=== PATIENT | female | born 1940 | race Caucasian/White ===

== ENCOUNTER 2016-04-06 16:50 | Emergency (ER) | payer MEDICARE, OTHER ==
[~2016-04-06] VITALS: Ht 165.1 cm; Wt 78.2 kg
[~2016-04-06 16:50] MED LIST: B-CA1TAB PO; BIOT10004 PO; CHOL200025 PO; DOXY40CP4 PO; ESCI20TA PO; FLEC150T PO; LEVO100T97 PO; LOVA20TA PO; MELO15TA14 PO; METO25TA6 PO; METR45CR TOP; OMEG300C3 PO; OXYB5TAB10 PO; POT25TAB5 PO; SPRN50T PO; VIT1TABL83 PO; WARF2TAB7 PO; WARF6TAB6 PO
[2016-04-06 16:54] VITALS: BP 134/80; PULSE 72; RESP 18; O2SAT 97
[2016-04-06] MEDS ORDERED: oxyCODONE 1 mg/mL 5 mL Liquid PO ONE (17:05)
--- NOTE | 2016-04-06 17:07 | ED.REPORT ---
HPI-Trauma Minor / Fall Date of Service Apr 06, 2016 ED Provider: Chika Perez MD 76 year old female with a hx of esophageal cancer s/p partial esophagectomy,HTN and Afib on warfarin who presents to the ED after a GLF just [employer]. Pt was walking her dog when she tripped on the leash and fell to the ground. She reports she fell on her R knee, hands and face. She has a few abrasions that are bleeding and reports a chipped tooth. Pt was able to walk after the fall. Pt denies LOC. Nursing Notes Stated Complaint: GLF,FACIAL LAC,ON COUMADIN Chief Complaint: Multiple Trauma/Fall Nursing Notes Reviewed: Yes Allergies: Coded Allergies: acetaminophen (Verified Allergy, Mild, diarrhea, 01/12/16) hydrocodone bitartrate (Verified Allergy, Mild, diarrhea, 01/12/16) Scheduled B-Carotene/C/E/Lut/Mn Cmb 29 (Macuvite with Lutein Tablet) 1 Each Tablet 1 EACH PO DAILY Cholecalciferol (Vitamin D3) (Vitamin D3) 2,000 Unit Tablet 2,000 UNIT PO DAILY Doxycycline Monohyd (Doxycycline Monohyd) 40 Mg Capsule 40 MG PO DAILY Escitalopram Oxalate (Lexapro) 20 Mg Tablet 20 MG PO BID Flecainide Acetate (Flecainide Acetate) 150 Mg Tablet 150 MG PO BID Levothyroxine (Synthroid) 100 Mcg Tablet 100 MCG PO DAILY Lovastatin (Lovastatin) 20 Mg Tablet 40 MG PO HS Meloxicam (Mobic) 15 Mg Tablet 15 MG PO DAILY Metoprolol Tartrate (Metoprolol Tartrate) 25 Mg Tablet 25 MG PO BID Metronidazole (Metronidazole Cream) 45 Gm Cream..g. 1 APPLIC TOP BID [place]-3 Fatty Acids (Fish Oil) 300 Mg Capsule 600 MG PO DAILY Oxybutynin Chloride (Oxybutynin Chloride) 5 Mg Tablet 5 MG PO BID Pot Chloride/Pot Bicarb/Cit AC Effer (Potassium Chloride Effer Tablet) 25 Meq Tablet.eff 10 MEQ PO DAILY TAKE WITH FOOD Spironolactone (Aldactone) 50 Mg Tab 50 MG PO DAILY Vit B Comp/C/FA/Iron/Vit E (Vitamin B Complex Tablet) 1 Each Tablet 1 EACH PO DAILY Warfarin Sodium (Warfarin Sodium) 2 Mg Tablet 4 MG PO [place] Warfarin Sodium (Warfarin Sodium) 6 Mg Tablet 6 MG PO mo,fr Miscellaneous Medications Biotin (Biotin) 1,000 Mcg Tab.chew 2,500 MCG PO General Time Seen by MD: 17:04 Chief Complaint Fall, Face injury, Extremity pain Hx Obtained From: Patient Arrived By: Walk-in Onset Occurred: Just prior to arrival Symptom Duration: Since onset Caused by: Fall on ground Location: Face Hand left Hand right Knee right Quality: Painful Severity: Current: Mild Associated with: Denies: Loss of consciousness, Neck pain Pertinent Negative: Relieved by nothing Past Medical History Past Medical History Esophageal cancer Tachy-luana syndrome Reports: Congestive heart failure, GERD, Hypertension Reports: Atrial fibrillation, Thyroid disease Past Surgical History Esophagectomy Colon resection Reports: Pacemaker insertion Smoking History Former Smoker Social History Other Social History: Ambulatory Status Independent Review of Systems Basic Review of Systems Psychiatric: Normal thought content Constitutional: Denies: Fever Respiratory: Denies: Shortness of breath Musculoskeletal: Reports: Extremity pain Neurologic: Denies: Change LOC Complete sys rev & neg: except as marked. Physical Exam Initial Vital Signs Vital Signs (First) Date Time Temp Pulse Resp B/P Pulse Ox O2 Delivery O2 Flow Rate FiO2 04/06/16 16:54 37 72 18 134/80 97 Room Air Initial VS: Reviewed General/Constitutional: Awake, Alert Quite upset Neck: Supple, No midline vertebral tend Head / Eyes: Normocephalic, PERRL Abrasion to R upper eyebrow. Small cut to inner aspect of R upper lip. Abrasion R lower lip. Abrasion to R cheek. ENT: Mucous membranes moist Chip to tooth #26 Respiratory / Chest: Breath sounds NL, Breath sounds = bilat, No respiratory distress, No rales, No rhonchi, No wheezing Cardiovascular: Heart rate NL, Regular rhythm, Heart sounds NL, Cap refill not delayed, Peripheral circulation NL Abdomen: Soft, Non-tender Back: Inspection NL, No midline vertebral tend Upper Extremity / MS: Full range of motion, Neurologic intact, Vascular intact Minor abrasions to bilat palms Lower Extremity / Pelvis / MS: Full range of motion, Neurologic intact, Vascular intact Minor abrasions to right knee Skin: Warm, Dry Neurologic: Oriented X3, Speech NL, No motor deficits, Gait NL (Walks without difficulty ) Interpretation & Diagnostics CT Head Interpretation IMPRESSION: No acute intracranial abnormality is found. Dictated by: Dudley Nichols M.D. on 04/06/2016 at 17:36 Study: Head CT no contrast Interpretation / Wet Read by: Interpret - Radiologist Re-Eval/Medical Decision Re-Evaluation/Progress : Time of Eval: 17:44 Re-Evaluation/Progress Note: Pt updated of imaging. All questions addressed. Counseled Regarding: Diagnosis, Need for follow-up, When/why to return to ED Discharge & Departure Impression: Primary Impression: Fall Encounter type: initial encounter Qualified Code: W19.XXXA - Unspecified fall, initial encounter Additional Impression: Abrasions of multiple sites Ruled Out: Intracranial hemorrhage Disposition: Home Discharge Condition All VS Reviewed: Yes Condition: Improved Additional Instructions: I am so glad you didn't do anything significant! There is no bleeding inside your head. You will have some more bruising and be more sore tomorrow. You can take Tylenol extra strength and the oxycodone you have at home for pain. Be careful with the dog. Good luck with the upcoming chemo and radiation. Referrals: Rosa Devlin MD (PCP) Scribe Attestation Portions of this note were transcribed by Noreen Kohli. I, (Chika Perez MD ) personally performed the history, physical exam and medical decision-making; I reviewed and confirmed the accuracy of the information in the transcribed note. Signed by: Noreen Kohli. 04/06/2016, 1817 copies to: Rosa Devlin MD, Shawna L MD Apr 06, 2016 17:07 Noreen Kohli Apr 06, 2016 17:44
--- NOTE | 2016-04-06 17:38 | DRSVH ---
PROCEDURE: CT BRAIN WITHOUT CONTRAST ([id number]) INDICATIONS: fell, on coumadin TECHNIQUE: Noncontrast 4.5 mm thick angled axial sections acquired from the foramen magnum to the vertex, with c oronal reformats. COMPARISON: [facility], CT, BRAIN W/O CONTRAST, 03/21/2008, 10:43. FINDINGS: Image quality: Excellent. CSF spaces: Basal cisterns are patent. No extra-axial fluid collections. The ventricles are symmet laly in size and shape. Brain: No intracranial bleeds or masses. There is cerebral volume loss for age, with resultant vent ricular and sulcal prominence. There are periventricular and deep white matter chronic small vessel ischemic changes. There is intracranial internal carotid artery atherosclerosis. Skull and face: Calvarium and visualized facial bones appear intact, without suspicious lesions. Sinuses: Visualized sinuses and mastoids are clear. IMPRESSION: No acute intracranial abnormality is found. Dictated by: Dudley Nichols M.D. on 04/06/2016 at 17:36 Approved by: Dudley Nichols M.D. on 04/06/2016 at 17:36
[2016-05-01] MEDS ORDERED: CAPE500T PO (09:40)
[2016-06-14] MEDS ORDERED: METO25TA6 PO (09:11)
[2016-06-14] MEDS ORDERED: FLEC100T2 PO (09:11)
[2016-06-28] MEDS ORDERED: PANT20TA2 PO (09:18)
== END 2016-04-06 18:14 | disposition home or self-care (01) ==
LOC: SED 16:50
DX: S00.211A Abrasion of right eyelid and periocular area, initial encounter (principal); S00.511A Abrasion of lip, initial encounter; S00.81XA Abrasion of other part of head, initial encounter; S60.511A Abrasion of right hand, initial encounter; S60.512A Abrasion of left hand, initial encounter; S80.211A Abrasion, right knee, initial encounter; S02.5XXA Fracture of tooth (traumatic), initial encounter for closed fracture; W01.0XXA Fall on same level from slipping, tripping and stumbling without subsequent striking against object, initial encounter; Y92.9 Unspecified place or not applicable; Y93.K1 Activity, walking an animal; Y99.8 Other external cause status; I50.9 Heart failure, unspecified; K21.9 Gastro-esophageal reflux disease without esophagitis; I10 Essential (primary) hypertension; I48.91 Unspecified atrial fibrillation; E07.9 Disorder of thyroid, unspecified; Z85.01 Personal history of malignant neoplasm of esophagus; Z95.0 Presence of cardiac pacemaker; Z90.89 Acquired absence of other organs; Z87.891 Personal history of nicotine dependence; Z79.01 Long term (current) use of anticoagulants; Z88.6 Allergy status to analgesic agent; Z88.5 Allergy status to narcotic agent

== ENCOUNTER 2016-05-30 10:39 | Inpatient (IN) | payer MEDICARE, OTHER ==
[2016-05-30] VITALS (8 sets, daily range): BP systolic 74–118; BP diastolic 31–67; PULSE 105–138; RESP 16–22; O2SAT 94–97
[~2016-05-30] VITALS: Ht 153.7 cm; Wt 90.2 kg
[~2016-05-30 10:39] MED LIST changes: +CAPE500T PO
[2016-05-30] MEDS ORDERED: Ondansetron 2 mg/mL 2 mL Inj IVPUSH ONE (10:55)
[2016-05-30] MEDS ORDERED: 0.9% Sodium Chloride 1,000 ML IV SCH (11:20)
--- NOTE | 2016-05-30 11:30 | DRSVH ---
PROCEDURE: X-RAY CHEST ONE VIEW, PORTABLE ([id number]) INDICATIONS: SHORTNESS OF BREATH TECHNIQUE: One view of the chest was acquired. COMPARISON: [facility], CR, XR CHEST 1VW (PORTABLE), 08/17/2015, 15:41. FINDINGS: Surgical changes and devices: Dual-lead cardiac pacer is stable. Lungs and pleura: No pleural effusions or pneumothorax. Lungs are clear. Mediastinum: Mediastinal contours appear normal. Heart size is normal. Bones and chest wall: No suspicious bony lesions. Overlying soft tissues appear unremarkable. IMPRESSION: No acute cardiopulmonary disease process. Dictated by: Mikala Richey MD, PhD on 05/30/2016 at 11:27 Approved by: Mikala Richey MD, PhD on 05/30/2016 at 11:28
[2016-05-30] MEDS ORDERED: MetoCLOpramide 5 mg/mL 2 mL Inj IVPUSH ONE (11:35)
[2016-05-30] MEDS ORDERED: HYDROmorphone 0.5 mg/0.5 mL iSecure Syringe IVPUSH PRN (11:35)
[2016-05-30] MEDS ORDERED: Pantoprazole 4 mg/mL 10 mL Inj IVPUSH ONE (11:35)
--- NOTE | 2016-05-30 11:35 | ED.REPORT ---
HPI-Abd Pain F 40 and Over Date of Service May 30, 2016 ED Provider: Jermaine Morgan MD History of Present Illness: Patient is a 76 y.o. F with past medical history of esophageal cancer currently being treated with oral chemotherapy and radiation, tachybrady syndrome, Atrial fibrilation no longer on coumadin, HFpEF EF 60-65%. She presents to the ED with two day history of worsening abdominal pain secondary to chemo-radiation therapy described as pressure-cramps Associated with nausea, vomiting, diarrhea x 17 in past 24 hours, back pain. Made worse with PO intake, made better by nothing. Patient seen at started on 1 L NS, sent over to ED for further treatment and work up. Patient taken immodium with minimal relief, zofran, Currently off of coumadin, aldactone per cardiology, discontinued one week ago. Oncologist Dr. Cruz Nursing Notes Stated Complaint: WEAKNESS Chief Complaint: Female Abdominal Pain Nursing Notes Reviewed: Yes Allergies: Coded Allergies: acetaminophen (Verified Allergy, Mild, diarrhea, 05/30/16) hydrocodone bitartrate (Verified Allergy, Mild, diarrhea, 05/30/16) Scheduled Aspirin (Aspirin) 325 Mg Tablet 325 MG PO DAILY Capecitabine (Xeloda) 500 Mg Tablet 1,650 MG PO BID takes 1650mg BID x5 weeks during RAD ONC Doxycycline Monohyd (Doxycycline Monohyd) 40 Mg Capsule 40 MG PO DAILY Escitalopram Oxalate (Lexapro) 20 Mg Tablet 20 MG PO BID Flecainide Acetate (Flecainide Acetate) 150 Mg Tablet 150 MG PO BID Levothyroxine (Synthroid) 100 Mcg Tablet 100 MCG PO DAILY Lovastatin (Lovastatin) 20 Mg Tablet 40 MG PO HS Metoprolol Tartrate (Metoprolol Tartrate) 25 Mg Tablet 25 MG PO BID Metronidazole (Metronidazole Cream) 45 Gm Cream..g. 1 APPLIC TOP BID Oxybutynin Chloride (Oxybutynin Chloride) 5 Mg Tablet 5 MG PO BID Pantoprazole DR (Pantoprazole DR) 40 Mg Tablet.dr 40 MG PO BID Potassium Chloride ER (Potassium Chloride ER) 20 Meq Tablet.er 20 MEQ PO DAILY Scheduled PRN Ondansetron ODT (Ondansetron ODT) 4 Mg Tab.rapdis 4 MG PO BID PRN PRN For Nausea General Time Seen by MD: 11:15 Chief Complaint Abdominal pain, Nausea, Vomiting mild Sudden in Onset?: No Onset Occurred: 1 day ago Past Medical History Past Medical History Esophageal cancer Tachy-luana syndrome Reports: Congestive heart failure, GERD, Hypertension Reports: Atrial fibrillation, Thyroid disease Past Surgical History Esophagectomy Colon resection Reports: Pacemaker insertion Smoking History Former Smoker Social History Other Social History: Ambulatory Status Independent Physical Exam Vital Signs Vital Signs (First) Date Time Temp Pulse Resp B/P Pulse Ox O2 Delivery O2 Flow Rate FiO2 05/30/16 10:45 37 138 19 98/53 97 Room Air 05/30/16 14:05 2 Initial VS: Reviewed Head / Eyes: Atraumatic, Normocephalic, PERRL ENT: Mucous membranes moist, Conjunctiva normal, No scleral icterus Lymphatic: No lymphadenopathy Extremities: Vascular intact, Neuro intact Skin: Warm, Dry, No cyanosis Neurologic: Alert, Oriented, Nonfocal Psychiatric: Mood/affect normal, Behavior normal, Normal thought content Respiratory / Chest: Breath sounds NL, Breath sounds = bilat, No respiratory distress, No rales, No rhonchi, No wheezing, No stridor Cardiovascular: Heart rate NL, No murmurs, Cap refill not delayed Heart Rate / Rhythm: Positive: Irreg irregular rhythm Abdomen: Soft, McBurney's non-tender, No rebound, No distention, No hernia, No palpable mass, No pulsatile mass Tenderness/Guarding/Rebound: Positive: Guarding involuntary, Guarding voluntary , Tender diffuse Bowel Sounds / Distention: Positive: Bowel sounds hypoactive Lower Extremity / Pelvis / MS: No swelling, Non-tender, No erythema, No edema Interpretation & Diagnostics Lab Results Interpretation Result Diagram: 06/02/16 0500 06/02/16 1640 Test 05/30/16 11:10 05/30/16 11:30 Hold Urine Received (Received) Myelocytes % 1% (0-0) X-Ray Chest Interpretation Chest Xray Interpretation: IMPRESSION: No acute cardiopulmonary disease process. Dictated by: Mikala Richey MD, PhD on 05/30/2016 at 11:27 Approved by: Mikala Richey MD, PhD on 05/30/2016 at 11:28 Interpretation / Wet Read by: Interpret - Radiologist X-Ray Abdominal Interpretation IMPRESSION: No acute disease process. Dictated by: Mikala Richey MD, PhD on 05/30/2016 at 11:58 Approved by: Mikala Richey MD, PhD on 05/30/2016 at 11:59 Interpretation / Wet Read by: Interpret - Radiologist Re-Eval/Medical Decision Med Decision/Clinical Course Patient is a 76 y.o. F who presented with abdominal pain, nausea, vomiting, diarrhea secondary to chemo and radiation therapy. Patient found to be dehydrate and hypotensive on presentation. Patient given 3L IV NS in the ED chest and abdominal x-ray did not show any signs of acute disease process. Lab results show significant hypomagnesemia, and hypokalemia, patient given IV replacement of potassium and magnesium. Given patient's significant fluid loss over the past 24 hours and comorbid conditions fluid resusitation under a controlled setting will be necessary over the next 24 hours. Oncology consulted and will see patient tonight or in the AM, no neuropenic precautions per Oncology at this time. Due to patient's risk factors for infection septic work up initiated in ED. Re-Evaluation/Progress #1: Time of Eval: 12:15 Patient Status: Mild relief Re-Evaluation/Progress Note: Patient has had 2 L NS, BP 98/50, alert and oriented, abdomen distillery supervisor to palpation diffusely, no BM since initial one at admission. CBC shows neutropenia, CMP Mg 1.1, 2 g IV repleation ordered. Re-Evaluation/Progress #2: Time of Eval: 13:12 Patient Status: Condition improved Re-Evaluation/Progress Note: Repleat potassium, repeat BMP ordered, alert and oriented, admit requested Re-Evaluation/Progress #3: Time of Eval: 13:45 Patient Status: Condition improved Re-Evaluation/Progress Note: BP 81/31 alert and oriented, denies abdominal pain and nausea, no vomitng or diarrhea since admission. Recieved Mg and potassium replacement Blood and urine cultures, Lactic acid ordered Admit req changed to PCC Consultation #1: Referral / Consult Name: Celestino Cruz MD Consulted With: On-call physician (Oncology) Requested Call at: 12:15 Doweler: Will see patient, Agrees with eval, Agrees with plan Note: Discussed patient presentation and status, agrees with admission for observation over night and fluid resusitation, will see patient tonight or in AM, available by pager. Consultation #2: Consulted With: Hospitalist Requested Call at: 15:04 Call Returned at: 15:04 Doweler: Will see patient, Accepts admit Counseled Regarding: Diagnosis, Lab results, Need for admission Discharge & Departure Primary Impression: Abdominal pain Abdominal location: generalized Qualified Code: R10.84 - Generalized abdominal pain Additional Impressions: Radiation gastritis Neutropenia Neutropenia type: secondary to cancer chemotherapy Qualified Code: D70.1 - Agranulocytosis secondary to cancer chemotherapy Diarrhea Nausea & vomiting Vomiting type: unspecified Vomiting Intractability: unspecified Qualified Code: R11.2 - Nausea with vomiting, unspecified Hypotension Hypotension type: other hypotension type Qualified Code: I95.89 - Other hypotension Discharge Condition All VS Reviewed: Yes Condition: Stable Referrals: Rosa Devlin MD (PCP) Attending Statement The patient was seen and examined together with Dr. Adair on 05/30/16 and I agree with the history, exam and plan as outlined in the note above. copies to: Rosa Devlin MD; Celestino Cruz MD, AARON J DO May 30, 2016 11:21 Jermaine Morgan MD Jun 03, 2016 09:02 Urine Granular Casts None seen (NONE SEEN) Urine Waxy Casts None seen (NONE SEEN) Urine Red Blood Cell Casts None seen (NONE SEEN) Urine White Blood Cell Casts None seen (NONE SEEN) Urine Mucus Present (None Seen) Urine Trichomonas None seen (NONE SEEN) Urine Yeast None (NONE SEEN) Urinalysis Comment None Urine Culture Reflexed Not indicated Hold Urine Received (Received) White Blood Count 2.2th/mm3 (3.8-10.1) Red Blood Count 4.67mil/mm3 (3.90-5.20) Hemoglobin 13.9g/dL (12.0-15.6) Hematocrit 40.5% (35.0-46.0) Mean Corpuscular Volume 86.7fL (81-100) Mean Corpuscular Hemoglobin 29.8pg (27.0-35.0) Mean Corpuscular Hemoglobin Concent 34.3% (32.0-37.0) Red Cell Distribution Width 17.4% (12.3-15.4) Platelet Count 187bil/L (150-400) Neutrophils (%) (Auto) 40% (40-74) Lymphocytes (%) (Auto) 7% (14-46) Monocytes (%) (Auto) 45% (4-12) Eosinophils (%) (Auto) 1% (0-5) Basophils (%) (Auto) 0% (0-3) Band Neutrophils % 6% (1-5) Myelocytes % 1% (0-0) Total Bilirubin 1.2mg/dL (0.0-1.2) Aspartate Amino Transf (AST/SGOT) 20U/L (0-50) Alanine Aminotransferase (ALT/SGPT) 9U/L (0-32) Alkaline Phosphatase 55U/L (25-165) Troponin T 0.010ug/L (0.0-0.011) Total Protein 6.2g/dL (6.4-8.4) Albumin 3.5g/dL (3.4-5.0) Lipase 5U/L (13-60) Sodium Level 132mEq/L (134-144) Potassium Level 3.4mEq/L (3.5-5.2) Chloride Level 98mEq/L (97-108) Carbon Dioxide Level 18mmol/L (18-29) Blood Urea Nitrogen 13mg/dL (8-27) Creatinine 0.87mg/dL (0.57-1.00) Estimat Glomerular Filtration Rate 90mL/min (>59) Glucose Level 110mg/dL (60-99) Calcium Level 7.1mg/dL (8.5-10.1) Magnesium Level 1.5mg/dL (1.6-2.6) X-Ray Chest Interpretation Chest Xray Interpretation: IMPRESSION: No acute cardiopulmonary disease process. Dictated by: Mikala Richey MD, PhD on 05/30/2016 at 11:27 Approved by: Mikala Richey MD, PhD on 05/30/2016 at 11:28 Interpretation / Wet Read by: Interpret - Radiologist X-Ray Abdominal Interpretation IMPRESSION: No acute disease process. Dictated by: Mikala Richey MD, PhD on 05/30/2016 at 11:58 Approved by: Mikala Richey MD, PhD on 05/30/2016 at 11:59 Interpretation / Wet Read by: Interpret - Radiologist Re-Eval/Medical Decision Med Decision/Clinical Course Patient is a 76 y.o. F who presented with abdominal pain, nausea, vomiting, diarrhea secondary to chemo and radiation therapy. Patient found to be dehydrate and hypotensive on presentation. Patient given 3L IV NS in the ED chest and abdominal x-ray did not show any signs of acute disease process. Lab results show significant hypomagnesemia, and hypokalemia, patient given IV replacement of potassium and magnesium. Given patient's significant fluid loss over the past 24 hours and comorbid conditions fluid resusitation under a controlled setting will be necessary over the next 24 hours. Oncology consulted and will see patient tonight or in the AM, no neuropenic precautions per Oncology at this time. Due to patient's risk factors for infection septic work up initiated in ED. Re-Evaluation/Progress #1: Time of Eval: 12:15 Patient Status: Mild relief Re-Evaluation/Progress Note: Patient has had 2 L NS, BP 98/50, alert and oriented, abdomen distillery supervisor to palpation diffusely, no BM since initial one at admission. CBC shows neutropenia, CMP Mg 1.1, 2 g IV repleation ordered. Re-Evaluation/Progress #2: Time of Eval: 13:12 Patient Status: Condition improved Re-Evaluation/Progress Note: Repleat potassium, repeat BMP ordered, alert and oriented, admit requested Re-Evaluation/Progress #3: Time of Eval: 13:45 Patient Status: Condition improved Re-Evaluation/Progress Note: BP 81/31 alert and oriented, denies abdominal pain and nausea, no vomitng or diarrhea since admission. Recieved Mg and potassium replacement Blood and urine cultures, Lactic acid ordered Admit req changed to PCC Consultation #1: Referral / Consult Name: Celestino Cruz MD Consulted With: On-call physician (Oncology) Requested Call at: 12:15 Doweler: Will see patient, Agrees with eval, Agrees with plan Note: Discussed patient presentation and status, agrees with admission for observation over night and fluid resusitation, will see patient tonight or in AM, available by pager. Consultation #2: Consulted With: Hospitalist Requested Call at: 15:04 Call Returned at: 15:04 Doweler: Will see patient, Accepts admit Counseled Regarding: Diagnosis, Lab results, Need for admission Discharge & Departure Primary Impression: Abdominal pain Abdominal location: generalized Qualified Code: R10.84 - Generalized abdominal pain Additional Impressions: Radiation gastritis Neutropenia Neutropenia type: secondary to cancer chemotherapy Qualified Code: D70.1 - Agranulocytosis secondary to cancer chemotherapy Diarrhea Nausea & vomiting Vomiting type: unspecified Vomiting Intractability: unspecified Qualified Code: R11.2 - Nausea with vomiting, unspecified Hypotension Hypotension type: other hypotension type Qualified Code: I95.89 - Other hypotension Discharge Condition All VS Reviewed: Yes Condition: Stable Referrals: Rosa Devlin MD (PCP) copies to: Rosa Devlin MD; Celestino Cruz MD, AARON J DO May 30, 2016 11:21
[2016-05-30 11:38] LABS: Mean Corpuscular Hemoglobin 29.8 pg (27.0-35.0); Mean Corpuscular Volume 86.7 fL (81-100); Platelet Count 187 bil/L (150-400)
[2016-05-30] MEDS ORDERED: 0.9% Sodium Chloride 1,000 ML IV ONE ×4 (11:50→22:55)
--- NOTE | 2016-05-30 12:01 | DRSVH ---
PROCEDURE: X-RAY ABDOMEN, ONE VIEW ([id number]) INDICATIONS: ABDOMINAL PAIN TECHNIQUE: One view of the abdomen acquired. COMPARISON: None. FINDINGS: Surgical changes and devices: Cholecystectomy clips. Multiple surgical clips and sutures project over the pelvis. Bowel: Bowel gas pattern is normal. Soft tissues: No suspicious abdominal calcifications. Visualized solid organ contours appear normal in size. Bones: No suspicious bony lesions. IMPRESSION: No acute disease process. Dictated by: Mikala Richey MD, PhD on 05/30/2016 at 11:58 Approved by: Mikala Richey MD, PhD on 05/30/2016 at 11:59
[2016-05-30 12:06] LABS: TROPONIN T 0.01 ug/L (0.0-0.011)
[2016-05-30 12:10] LABS: BASOPHILS % (AUTO) 0 % (0-3); EOSINOPHILS % (AUTO) 1 % (0-5); MONOCYTES % (AUTO) 45 % (4-12); NEUTROPHILS % (AUTO) 40 % (40-74)
[2016-05-30 12:27] LABS: Magnesium 1.1 mg/dL (1.6-2.6)
[2016-05-30] MEDS ORDERED: Magnesium Chloride SR 64 mg ER24 Tablet PO ONE ×2 (12:30→14:20)
[2016-05-30] MEDS ORDERED: Magnesium Sulf 2 Gm/50mL Water 2 GM in IV Premix 1 EACH IV ONE ×3 (12:45→20:10)
[2016-05-30 13:01] LABS: APPEARANCE,URINE HAZY (CLEAR,HAZY); COLOR,URINE YELLOW (YELLOW); OCCULT BLOOD,URINE NEGATIVE (NEGATIVE)
[2016-05-30 13:03] LABS: UROBILINOGEN,URINE NORMAL (NORMAL)
[2016-05-30] MEDS ORDERED: KCl 40 mEq/D5W 500 mL 40 MEQ in IV Premix 500 EACH IV ONE (13:10)
[2016-05-30] MEDS ORDERED: POTA-62 PO (13:50)
[2016-05-30] MEDS ORDERED: ASPI325T32 PO (13:50)
[2016-05-30] MEDS ORDERED: PANT40TA3 PO (13:52)
[2016-05-30] MEDS ORDERED: ONDA4TAB12 PO (13:52)
[2016-05-30] MEDS ORDERED: Potassium Chloride 20 mEq SR Tablet PO ONE (14:20)
[2016-05-30] MEDS ORDERED: Polyethylene Glycol (PEG) 17 Gm Powder PO PRN (15:05)
[2016-05-30] MEDS ORDERED: Alum-Mag Hydrox-Simeth 30 mL Suspension PO PRN (15:05)
--- NOTE | 2016-05-30 15:43 | NUR ---
ED to PCC Patient arrived from ED at approximately 1530 via gurney. Transferred pt to PCC bed. BP 100/60. RR 18, P110. T38.8. Pt visiting with son. Pt resting comfortably. Provided ice chips at this time. MP30 due to low BP in ED, NC 2L. Care continues.
[2016-05-30] MEDS: 0.9% Sodium Chloride 1,000 ML IV SCH (16:25)
--- NOTE | 2016-05-30 17:13 | NUR ---
BP Pt BP ranging from 79/32 to 89/31. Pt denies chest pain, states she is lightheaded, due to not keeping anything down per pt. NS running at 75 ml/hr, potassium at 75 ml/hr due to veins hurting per patient. MD notified and aware. Care continues.
--- NOTE | 2016-05-30 17:19 | PCM.HPMED ---
Subjective Date of Service May 30, 2016 Primary Provider: Admitting Physician: Nikita Garber MD Primary Care Physician: Rosa Devlin MD Attending Physician: Nikita Garber MD Admit Status: From the Emergency Department, 23-Hour Observation, Admit to [facility], [facility] Telemetry Chief Complaint: Weakness, dehydration and hypotension. History of Present Illness: This is a 76-year-old female with a history of esophageal cancer. This is diagnosed in November. She underwent a partial esophagectomy February 01 at [facility]. She is currently undergoing combination radiation and chemotherapy. She is in her third week of radiation, 5 weeks total planned. This is followed by chemotherapy. She presented today with generalized weakness as well as diarrhea and nausea with multiple episodes of emesis. He denies any blood per rectum. Minimal abdominal pain. Some cramping. Some rhinorrhea but no fevers or chills. She historically does get cold easily. In the ED she was found clinically to be Depleted, had a very low systolic blood pressure and was started with fluid resuscitation with normal saline. There is no evidence of infection based on laboratory testing or chest x-ray. She denies recent cough, dyspnea, hematuria or dysuria. Her diarrhea is felt to likely related to recent radiation therapy. Review of Systems: No headache, hearing loss or visual changes. Some rhinorrhea. No sore throat or cough. No hematuria or dysuria. No skin rash or lesions. She is generally weak. She gets lightheaded when standing up. She has had a hard time with her oral intake including fluids. She said really nothing D for several days. She recently had some bleeding in her nose which prompted her manager concrete to stop her Coumadin for chronic A. fib and is now on aspirin. All is reviewed and is otherwise negative except as noted in H&P Allergies Coded Allergies: acetaminophen (Verified Allergy, Mild, diarrhea, 05/30/16) hydrocodone bitartrate (Verified Allergy, Mild, diarrhea, 05/30/16) Home Medications Scheduled Aspirin (Aspirin) 325 Mg Tablet 325 MG PO DAILY Capecitabine (Xeloda) 500 Mg Tablet 1,650 MG PO BID takes 1650mg BID x5 weeks during RAD ONC Doxycycline Monohyd (Doxycycline Monohyd) 40 Mg Capsule 40 MG PO DAILY Escitalopram Oxalate (Lexapro) 20 Mg Tablet 20 MG PO BID Flecainide Acetate (Flecainide Acetate) 150 Mg Tablet 150 MG PO BID Levothyroxine (Synthroid) 100 Mcg Tablet 100 MCG PO DAILY Lovastatin (Lovastatin) 20 Mg Tablet 40 MG PO HS Metoprolol Tartrate (Metoprolol Tartrate) 25 Mg Tablet 25 MG PO BID Metronidazole (Metronidazole Cream) 45 Gm Cream..g. 1 APPLIC TOP BID Oxybutynin Chloride (Oxybutynin Chloride) 5 Mg Tablet 5 MG PO BID Pantoprazole DR (Pantoprazole DR) 40 Mg Tablet.dr 40 MG PO BID Potassium Chloride ER (Potassium Chloride ER) 20 Meq Tablet.er 20 MEQ PO DAILY Scheduled PRN Ondansetron ODT (Ondansetron ODT) 4 Mg Tab.rapdis 4 MG PO BID PRN PRN For Nausea PMH 1. Esophageal cancer 2. Tachycardia bradycardia syndrome 3. Atrial fibrillation 4. Chronic diastolic heart failure 5. GERD. 6. Essential hypertension. 7. Hypothyroidism Surgical History Esophagectomy Colectomy Social History Occupation: retired Hx Alcohol Use: Yes (SPECIAL OCCASIONS) Hx Substance Use: No Hx Tobacco Use: No (QUIT IN 70'S) Smoking Status: Former Smoker Living Arrangement: with Family Exam Vital Signs Vital Sign - Last Date Time Temp Pulse Resp B/P Pulse Ox O2 Delivery O2 Flow Rate FiO2 05/30/16 15:50 105 05/30/16 15:36 36.9 22 100/60 95 Nasal Cannula 05/30/16 14:05 2 Exam Alert and oriented 3, fluent speech. Normal affect. Normal scalp. If normal nose and ears Anicteric sclerae, symmetric pupils Oropharynx is very dry mucosa no facial droop Neck is supple, normal thyroid no adenopathy Lungs are clear with normal rate and effort. Heart is irregular without murmur gallop or rub. Abdomen soft nontender, no masses or rebound Exams are free of edema Good pedal and radial pulses. Skin is with dry or decreased turgor. Skin is free of rash, lesions or ecchymosis. Joints are not swollen or deformed Muscles with normal tone. Cranial nerves are intact. Lab and Diagnostics Result Diagram: 05/30/16 1130 05/30/16 1328 Assessment & Plan 1. Hypotension secondary to volume depletion, POA. Fluid resuscitation with normal saline. 2. Lactic acidosis, secondary to Lyme depletion. POA. Follow with fluid resuscitation 3. Mild hypokalemia, POA. Replete 4. Hypomagnesemia, POA. Replete 5. Esophageal cancer, status post esophagectomy currently on chemoradiation therapy. POA. 6. Chronic diastolic heart failure, POA. Currently compensated. Follow for symptoms that she is fluid resuscitated. 7. Essential hypertension, POA. Hold meds until fluid resuscitated. Patient is full resuscitation this was discussed with her and her son today. She is admitted observation status with a potential one night length of stay. Pain Evaluation: Adequate Pain Control VTE Mechanical Devices: Intermittant Pneumatic CD Resuscitation Status: CPR: Attempt Resuscitation Time spent 40 minutes Nikita Garber MD May 30, 2016 17:19
[2016-05-30] MEDS: Ondansetron 2 mg/mL 2 mL Inj IVPUSH PRN ×2 (17:26→20:12)
[2016-05-30] MEDS: HYDROmorphone 0.5 mg/0.5 mL iSecure Syringe IVPUSH PRN (20:11)
[2016-05-31 00:06] VITALS: BP 77/43; PULSE 105; RESP 20; O2SAT 96
[2016-05-31] MEDS: 0.9% Sodium Chloride 1,000 ML IV ONE ×2 (01:45→02:11)
[2016-05-31] MEDS: 0.9% Sodium Chloride 1,000 ML IV SCH ×4 (01:45→10:31)
[2016-05-31 02:28] VITALS: BP 76/45; PULSE 100; RESP 25; O2SAT 96
[2016-05-31] MEDS: Ondansetron 2 mg/mL 2 mL Inj IVPUSH PRN ×2 (03:16→11:55)
[2016-05-31 03:30] LABS: Mean Corpuscular Hemoglobin 29.4 pg (27.0-35.0); Mean Corpuscular Volume 89.1 fL (81-100); Platelet Count 110 bil/L (150-400)
[2016-05-31 03:49] LABS: Magnesium 2.2 mg/dL (1.6-2.6)
[2016-05-31 03:50] LABS: BASOPHILS % (AUTO) 0 % (0-3); EOSINOPHILS % (AUTO) 0 % (0-5); MONOCYTES % (AUTO) 38 % (4-12); NEUTROPHILS % (AUTO) 26 % (40-74)
[2016-05-31] MEDS ORDERED: 0.9% Sodium Chloride 1,000 ML IV ONE (04:20)
[2016-05-31 05:39] VITALS: PULSE 104
[2016-05-31] MEDS ORDERED: Vancomycin Dose per Pharmacist XX SCH (06:05)
[2016-05-31] MEDS ORDERED: Acetaminophen IV 1,000 MG in IV Premix 1 EACH IV PRN (06:05)
[2016-05-31] MEDS ORDERED: Ondansetron 2 mg/mL 2 mL Inj IVPUSH PRN (06:05)
[2016-05-31] MEDS ORDERED: Vasopressin Inj 20 UNIT in 0.9% Sodium Chloride 100 ML IV SCH (06:05)
[2016-05-31] MEDS ORDERED: Norepineph 8,000 mCg/250 mL NS 8,000 MCG in IV Premix 1 EACH IV SCH (06:05)
[2016-05-31] MEDS: Vasopressin Inj 20 UNIT in 0.9% Sodium Chloride 100 ML IV SCH ×2 (06:34→17:01)
[2016-05-31] MEDS ORDERED: Vancomycin Inj 1,750 MG in 0.9% Sodium Chloride 500 ML IV ONE (06:45)
[2016-05-31] MEDS ORDERED: Piperacillin-Tazo 3.375 Gm Inj 3.375 GM in Dextrose 5% Minibag Plus 50 ML IV SCH (06:45)
[2016-05-31] MEDS ORDERED: levoFLOXacin Inj 750 MG in IV Premix 1 EACH IV SCH (06:50)
[2016-05-31] MEDS ORDERED: Sodium Chloride LOK Flush 10 mL Syringe IVFLUSH PRN ×2 (07:00)
--- NOTE | 2016-05-31 07:08 | PCM.PNMED ---
Subjective Date of Service May 31, 2016 Subjective Called to see patient for persistent hypotension. Patient denies any chest pain or shortness of breath. But does admit to nausea. Exam Vital Signs Vital Sign - Last Date Time Temp Pulse Resp B/P Pulse Ox O2 Delivery O2 Flow Rate FiO2 05/31/16 05:39 104 05/31/16 03:22 Supplement Oxygen 05/31/16 02:28 37.1 25 76/45 96 2.00 Intake and Output 05/30/16 05/30/16 05/31/16 Cumulative From/Thru 15:00 23:00 07:00 05/30/16 10:45 - 05/31/16 05:21 Intake Total 120 ml 3600 ml 3720 ml Output Total 200 ml 900 ml 1100 ml Balance -80 ml 2700 ml 2620 ml Intake Oral 120 ml 100 ml 220 ml IV Total 3500 ml 3500 ml Output Urine Total 200 ml 200 ml Urine/Stool Mix 900 ml 900 ml Exam Constitutional: elderly woman in some discomfort Head: Normocephalic atraumatic Chest: Clear to auscultation Cor: Regular rate and rhythm S1-S2 Abdomen: Soft, mild diffuse tenderness no rebound or guarding Extremity exam: No pedal edema Neuro: Alert and oriented 3, motor strength is intact bilaterally Lab and Diagnostics Laboratory Tests 72 Hours Test 05/30/16 11:10 05/30/16 11:30 05/30/16 13:28 05/30/16 14:35 Urine Color Yellow (YELLOW) Urine Appearance Hazy (CLEAR,HAZY) Urine pH 6.0 (5.0-8.0) Urine Specific [place] 1.030 (1.003-1.035) Urine Protein Negativemg/dL (NEG,TRACE) Urine Glucose (UA) Negativemg/dL (NEGATIVE) Urine Ketones 15mg/dL (NEGATIVE) Urine Occult Blood Negative (NEGATIVE) Urine Nitrite Negative (NEGATIVE) Urine Bilirubin Negative (NEGATIVE) Urine Urobilinogen Normalmg/dL (NORMAL) Urine Leukocyte Esterase Negative (NEGATIVE) Urine RBC 0-2/hpf (0-2) Urine WBC 0-5/hpf (0-5) Urine Epithelial Cells Occasional/hpf (NONE-MOD) Urine Crystals None seen (NONE SEEN) Urine Bacteria None/hpf (NONE-FEW) Urine Hyaline Casts Occasional/lpf (NONE) Urine Granular Casts None seen (NONE SEEN) Urine Waxy Casts None seen (NONE SEEN) Urine Red Blood Cell Casts None seen (NONE SEEN) Urine White Blood Cell Casts None seen (NONE SEEN) Urine Mucus Present (None Seen) Urine Trichomonas None seen (NONE SEEN) Urine Yeast None (NONE SEEN) Urinalysis Comment None Urine Culture Reflexed Not indicated Hold Urine Received (Received) White Blood Count 2.2th/mm3 (3.8-10.1) Red Blood Count 4.67mil/mm3 (3.90-5.20) Hemoglobin 13.9g/dL (12.0-15.6) Hematocrit 40.5% (35.0-46.0) Mean Corpuscular Volume 86.7fL (81-100) Mean Corpuscular Hemoglobin 29.8pg (27.0-35.0) Mean Corpuscular Hemoglobin Concent 34.3% (32.0-37.0) Red Cell Distribution Width 17.4% (12.3-15.4) Platelet Count 187bil/L (150-400) Neutrophils (%) (Auto) 40% (40-74) Lymphocytes (%) (Auto) 7% (14-46) Monocytes (%) (Auto) 45% (4-12) Eosinophils (%) (Auto) 1% (0-5) Basophils (%) (Auto) 0% (0-3) Band Neutrophils % 6% (1-5) Myelocytes % 1% (0-0) Sodium Level 130mEq/L (134-144) 132mEq/L (134-144) Potassium Level 2.9mEq/L (3.5-5.2) 3.4mEq/L (3.5-5.2) Chloride Level 91mEq/L (97-108) 98mEq/L (97-108) Carbon Dioxide Level 17mmol/L (18-29) 18mmol/L (18-29) Blood Urea Nitrogen 14mg/dL (8-27) 13mg/dL (8-27) Creatinine 1.07mg/dL (0.57-1.00) 0.87mg/dL (0.57-1.00) Estimat Glomerular Filtration Rate 71mL/min (>59) 90mL/min (>59) Glucose Level 149mg/dL (60-99) 110mg/dL (60-99) Calcium Level 8.3mg/dL (8.5-10.1) 7.1mg/dL (8.5-10.1) Magnesium Level 1.1mg/dL (1.6-2.6) 1.5mg/dL (1.6-2.6) Total Bilirubin 1.2mg/dL (0.0-1.2) Aspartate Amino Transf (AST/SGOT) 20U/L (0-50) Alanine Aminotransferase (ALT/SGPT) 9U/L (0-32) Alkaline Phosphatase 55U/L (25-165) Troponin T 0.010ug/L (0.0-0.011) Total Protein 6.2g/dL (6.4-8.4) Albumin 3.5g/dL (3.4-5.0) Lipase 5U/L (13-60) Lactic Acid Level 2.8mmol/L (0.4-2.0) Test 05/30/16 21:00 05/31/16 02:26 Lactic Acid Level 1.5mmol/L (0.4-2.0) White Blood Count 1.8th/mm3 (3.8-10.1) Red Blood Count 3.40mil/mm3 (3.90-5.20) Hemoglobin 10.0g/dL (12.0-15.6) Hematocrit 30.3% (35.0-46.0) Mean Corpuscular Volume 89.1fL (81-100) Mean Corpuscular Hemoglobin 29.4pg (27.0-35.0) Mean Corpuscular Hemoglobin Concent 33.0% (32.0-37.0) Red Cell Distribution Width 17.2% (12.3-15.4) Platelet Count 110bil/L (150-400) Neutrophils (%) (Auto) 26% (40-74) Lymphocytes (%) (Auto) 16% (14-46) Monocytes (%) (Auto) 38% (4-12) Eosinophils (%) (Auto) 0% (0-5) Basophils (%) (Auto) 0% (0-3) Band Neutrophils % 18% (1-5) Metamyelocytes % 2% (0-0) Sodium Level 131mEq/L (134-144) Potassium Level 2.8mEq/L (3.5-5.2) Chloride Level 102mEq/L (97-108) Carbon Dioxide Level 20mmol/L (18-29) Blood Urea Nitrogen 12mg/dL (8-27) Creatinine 0.81mg/dL (0.57-1.00) Estimat Glomerular Filtration Rate 98mL/min (>59) Glucose Level 110mg/dL (60-99) Calcium Level 6.6mg/dL (8.5-10.1) Magnesium Level 2.2mg/dL (1.6-2.6) Total Bilirubin 0.6mg/dL (0.0-1.2) Aspartate Amino Transf (AST/SGOT) 16U/L (0-50) Alanine Aminotransferase (ALT/SGPT) 7U/L (0-32) Alkaline Phosphatase 38U/L (25-165) Total Protein 4.1g/dL (6.4-8.4) Albumin 2.1g/dL (3.4-5.0) Result Diagram: 05/31/1622505/31/16225 X-Rays, CTs and MRIs PROCEDURE: X-RAY CHEST ONE VIEW, PORTABLE ([id number]) INDICATIONS: SHORTNESS OF BREATH TECHNIQUE: One view of the chest was acquired. COMPARISON: Located Within [facility], CR, XR CHEST 1VW (PORTABLE), 08/17/2015, 15: 41. FINDINGS: Surgical changes and devices: Dual-lead cardiac pacer is stable. Lungs and pleura: No pleural effusions or pneumothorax. Lungs are clear. Mediastinum: Mediastinal contours appear normal. Heart size is normal. Bones and chest wall: No suspicious bony lesions. Overlying soft tissues appear unremarkable. IMPRESSION: No acute cardiopulmonary disease process. Dictated by: Mikala Richey MD, PhD on 05/30/2016 at 11:27 Approved by: Mikala Richey MD, PhD on 05/30/2016 at 11:28 Assessment & Plan 1. Hypotension secondary to volume depletion, POA. Fluid resuscitation with normal saline. 2. Lactic acidosis, secondary to Lyme depletion. POA. Follow with fluid resuscitation 3. Mild hypokalemia, POA. Replete 4. Hypomagnesemia, POA. Replete 5. Esophageal cancer, status post esophagectomy currently on chemoradiation therapy. POA. 6. Chronic diastolic heart failure, POA. Currently compensated. Follow for symptoms that she is fluid resuscitated. 7. Essential hypertension, POA. Hold meds until fluid resuscitated. Patient is full resuscitation this was discussed with her and her son today. She is admitted observation status with a potential one night length of stay. Acute critical care note: Assessment and plan: Persistent hypotension, acute, present on admission Patient did get approximately 5.5 L of IV fluid hydration and did not help with the hypotension At this point we will initiate IV Levophed for blood pressure support We will check urgent echocardiogram Will place on sepsis protocol of unknown etiology and initiate Zosyn, IV Vanco, IV Levaquin Check serial troponins Check chest x-ray, UA, blood culture 2 Time spent in critical care: 30 minutes VTE Mechanical Devices: Intermittant Pneumatic CD Resuscitation Status: CPR: Attempt Resuscitation Time spent 30 minutes Chaya Lawson MD May 31, 2016 07:08
--- NOTE | 2016-05-31 07:14 | NUR ---
Cardiac Pt continued to have Hypotension with BP's 70's systolic and 30's to 40's diastolic with MAP's in the 50's throughout shift despite fluid resuscitation of 3L per MD over the course of the night. Pt Asymptomatic denies dizziness, but continues to have nausea that pt says has improved from the past couple of days. Night MD aware and orders to transfer to CCU and begin pressers to help with BP.
[2016-05-31] MEDS: Norepineph 8,000 mCg/250 mL NS 8,000 MCG in IV Premix 1 EACH IV PRN ×2 (07:23→23:34)
[2016-05-31 07:37] LABS: Phosphorus 1.9 mg/dL (2.5-4.9)
[2016-05-31 08:00] VITALS: BP 100/43; PULSE 98; RESP 19; O2SAT 97
[2016-05-31] MEDS: Famotidine Inj 20 MG in IV Premix 1 EACH IV SCH ×2 (08:30→20:56)
[2016-05-31] MEDS: Heparin 5,000 Unit/mL Inj SUBQ SCH ×2 (08:40→16:30)
[2016-05-31] MEDS: Hydrocortisone 50 mg/mL 2 mL Inj IVPUSH SCH ×2 (10:26→17:01)
[2016-05-31] MEDS: HYDROmorphone 0.5 mg/0.5 mL iSecure Syringe IVPUSH PRN (11:54)
[2016-05-31 13:07] LABS: INR 3.22 ratio
--- NOTE | 2016-05-31 13:19 | DRSVH ---
[facility] [address] [place] [address] Echocardiogram Report Name: BEBA HALL RStudy Date: 05/2016 Height: 61 in Hospital Exam Location: [facility] Weight: 176 lb Gender: Female BSA: 1.8 m2 : 1940 Age: 76 yrs BP: 76/45 mmHg Reason For Study: RV/LV FUNCTION Ordering Physician: HOSPITALIST [facility] Performed By: Adalid Anna Referring Physician: Yudy BRUNO Interpretation Summary The patient was in atrial fibrillation with rapid ventricular response during the exam with a heart rate exceeding 100 bpm (New). The left ventricle is normal in size. The left ventricle is hyperdynamic. The ejection fraction is estimated to be 70-75%. There is no echo evidence for significant left ventricular outflow tract obstruction. The right ventricle grossly appears normal in size with probable normal systolic function. There is a pacemaker lead in the right ventricle. There is mild to moderate mitral regurgitation. Compared to the prior echo study, there has been an increase in the severity of mitral regurgitation. There is mild tricuspid regurgitation. Compared to the prior echo exam, there has been no change in TR severity. The right ventricular systolic pressure is estimated at 39 mmHg assuming a right atrial pressure of 8 mm Hg. The main pulmonary artery is dilated with a diameter of 4.0 cm. In the previous study it was about 4.5 cm in diameter. Procedure: A two-dimensional transthoracic echocardiogram with color flow and Doppler was performed. The study quality was technically adequate. Comparison is made with the echocardiogram of 01/30/16. The subcostal views were difficult to obtain and are suboptimal in quality. The patient was in atrial fibrillation with rapid ventricular response during the exam with a heart rate exceeding 100 bpm. The patient had a heart rate of 85-120 beats per minute. Left Ventricle: The left ventricle is normal in size. Proximal septal thickening is noted. There is no echo evidence for significant left ventricular outflow tract obstruction. The ejection fraction is estimated to be 70-75%. The left ventricle is hyperdynamic. There are no focal wall motion abnormalities. Diastolic function could not be accurately assessed due to atrial fibrillation. Right Ventricle: The right ventricle grossly appears normal in size with probable normal systolic function. There is a pacemaker lead in the right ventricle. Atria: The left atrium is moderately dilated. The left atrium has mildly decreased in size since the prior echo exam. Right atrial size is normal. The right atrium has significantly decreased in size since the prior echo exam. The interatrial septum is intact with no evidence for an atrial septal defect. Mitral Valve: There is mild mitral annular calcification. The mitral valve leaflets are mildly calcified. There is mild to moderate mitral regurgitation. Compared to the prior echo study, there has been an increase in the severity of mitral regurgitation. Aortic Valve: The aortic valve is trileaflet. The aortic valve is slightly calcified. The aortic valve opens well. There is discrete nodular thickening of the non- coronary cusp. There is no aortic valve stenosis. There is trace aortic regurgitation. Tricuspid Valve: The tricuspid valve is normal in structure and function. There is mild tricuspid regurgitation. The right ventricular systolic pressure is estimated at 39 mmHg assuming a right atrial pressure of 8 mm Hg. Compared to the prior echo exam, there has been no change in TR severity. Pulmonic Valve: The pulmonic valve leaflets are thin and pliable; valve motion is normal. There is trace pulmonic regurgitation. Great Vessels: The aortic root is normal size. The dimensions of the ascending aorta are normal. The main pulmonary artery is dilated with a diameter of 4.0 cm. In the previous study it was about 4.5 cm in diameter. The IVC is dilated (diameter is greater than 2.1 cm) yet it collapses greater than 50% with a sniff. This suggests a right atrial pressure of 8 mm Hg. Pericardium/ Pleura There is no pericardial effusion. There is no pleural effusion. MMode/2D Measurements & Calculations LVIDd: 5.4 cm LA dimension: 4.0 cm RA long axis LVOT diam LVIDs: 2.8 cm FS: 47.5 % LA A2 area: 22.5 cm RA area AoV Opening EPSS: 0.00 cm LA A4 area: 25.2 cm IVSd: 0.87 cm LA length (vol): 5.9 cm: 19.0 cm Ao root diam LVPWd: 0.98 cm LA vol: 81.8 ml RA vol LA vol index : 56.2 ml Aortic Jxn RA : 31.4 mm2 asc Aorta IVC diam: 2.3 cm Diam: 3.4 cm LV yang. diameter/BSA LV sys. diameter/BSA (cm/m^2): 3.0 (cm/m^2): 1.6 Doppler Measurements & Calculations Ao V2 max MV E max keon MV E/A: 38.0 TR max keon : 150.8 cm/sec : 103.1 cm/sec Med Peak E' Keon : 277.8 cm/sec Ao max P.1 mmHg MV A max keon TR max PG Ao mean P.5 mmHg : 2.7 cm/sec E/E' med: 7.3 : 30.9 mmHg LVOT Max Keon Lat Peak E' Keon PA V2 max : 120.9 cm/sec : 94.7 cm/sec E/E' lat: 10.0 PA mean PG CHRIS(I,D): 3.1 cm E/e' average: 8.7 sev ratio: 0.76 PA Accel Time : 0.10 sec MV dec time: 0.15 sec Ao V2 mean LV V1 max PG PA V2 mean : 113.2 cm/sec : 62.5 cm/sec Ao V2 VTI: 28.0 cm LV V1 VTI: 21.2 cmPA pr(Accel) : 26.6 mmHg CHRIS(V,D): 3.3 cm2 CHRIS indexed to BSA (cm^2/m^2): 1.7 Reading Physician:CYNTHIA
[2016-05-31 13:23] LABS: APPEARANCE,URINE CLEAR (CLEAR,HAZY); COLOR,URINE YELLOW (YELLOW)
[2016-05-31 13:24] LABS: OCCULT BLOOD,URINE NEGATIVE (NEGATIVE); PH,URINE 5.5 (5.0-8.0); UROBILINOGEN,URINE NORMAL (NORMAL)
--- NOTE | 2016-05-31 13:49 | PCM.PNMED ---
Subjective Date of Service May 31, 2016 Subjective Patient is having a dry cough. She also has abdominal pain which is primarily left and right lower quadrant. Some anorexia and no nausea and no diarrhea. She denies any chest pain. She had 1 fever last night. She denies confusion. Exam Vital Signs Vital Sign - Last Date Time Temp Pulse Resp B/P Pulse Ox O2 Delivery O2 Flow Rate FiO2 05/31/16 08:00 37.7 98 19 100/43 97 Nasal Cannula 3.00 Intake and Output 05/30/16 05/30/16 05/31/16 Cumulative From/Thru 15:00 23:00 07:00 05/30/16 10:45 - 05/31/16 05:21 Intake Total 120 ml 3600 ml 3720 ml Output Total 200 ml 900 ml 1100 ml Balance -80 ml 2700 ml 2620 ml Intake Oral 120 ml 100 ml 220 ml IV Total 3500 ml 3500 ml Output Urine Total 200 ml 200 ml Urine/Stool Mix 900 ml 900 ml Exam Neurontin 3, fluent speech. No distress. Anicteric sclerae. Neck is supple. Lungs are clear with normal effort. Heart is irregular without murmur, or gallop. Abdomen is somewhat distended with normal active bowel tones. There is some tenderness but no guarding or rebound. Extremities are free of edema good pedal pulses. History of rash or lesions IVs and Medications Medications Reviewed: Medications were reviewed in detail Lab and Diagnostics Result Diagram: 05/31/1622505/31/16225 X-Rays, CTs and MRIs PROCEDURE: X-RAY CHEST ONE VIEW, PORTABLE ([id number]) INDICATIONS: SHORTNESS OF BREATH TECHNIQUE: One view of the chest was acquired. COMPARISON: [facility], CR, XR CHEST 1VW (PORTABLE), 08/17/2015, 15: 41. FINDINGS: Surgical changes and devices: Dual-lead cardiac pacer is stable. Lungs and pleura: No pleural effusions or pneumothorax. Lungs are clear. Mediastinum: Mediastinal contours appear normal. Heart size is normal. Bones and chest wall: No suspicious bony lesions. Overlying soft tissues appear unremarkable. IMPRESSION: No acute cardiopulmonary disease process. Dictated by: Mikala Richey MD, PhD on 05/30/2016 at 11:27 Approved by: Mikala Richey MD, PhD on 05/30/2016 at 11:28 Assessment & Plan 1. Probable septic shock, POA. Patient has developed the need for pressors overnight. She has evidence of abdominal tenderness as well as lactic acidosis. She also had a fever. She has shock refractory to 5 L of fluid requiring vasopressors. The source of infection remains unclear but is suggestive of septic shock. Landed to continue empiric antibiotics currently with cefepime, levofloxacin and vancomycin which should be renal dosed. She will undergo a CT of the abdomen today to rule out intra-abdominal abnormality. In addition she does have a light cough and her chest x-ray remains clear. 2. Lactic acidosis . POA. She has partially normalized her lactic acid after fluid resuscitation. We will continue to trend this fluid resuscitate and use vasopressors. 3. Mild hypokalemia, POA. Corrected. 4. Hypomagnesemia, POA. Corrected. 5. Esophageal cancer, status post esophagectomy currently on chemoradiation therapy. POA. 6. Chronic diastolic heart failure, POA. Currently compensated. Follow for symptoms that she is fluid resuscitated. 7. Essential hypertension, POA. Hold meds until fluid resuscitated. 8. Neutropenic fever. Her ANC is 900 today. This was not present on admission but has developed overnight. The treatment is congruent with the above including empiric antibiotics. Will check urinalysis repeated chest x- rays CT of the abdomen as well as blood cultures. Patient is full resuscitation this was discussed with her and her son today. She is admitted patient's status with presumed likely stable over 2 nights given her clinical decompensation. Pain Evaluation: Adequate Pain Control VTE Mechanical Devices: Intermittant Pneumatic CD Resuscitation Status: CPR: Attempt Resuscitation Time spent 40 minutes Nikita Garber MD May 31, 2016 13:49
[2016-05-31] MEDS: Vancomycin 100 mg/mL Oral Solution PO SCH ×2 (14:30→21:39)
[2016-05-31] MEDS: HYDROmorphone 1 mg/mL Inj IVPUSH PRN (14:30)
--- NOTE | 2016-05-31 14:42 | PCM.CHPMED ---
Subjective Date of Service: May 31, 2016 Provider requesting consult: Nikita Garber MD Primary Physician: Admitting Physician: Nikita Garber MD Primary Care Physician: Rosa Devlin MD Attending Physician: Nikita Garber MD Admit Status: From the Emergency Department Chief Complaint: Chief Complaint: Nausea, vomiting, abdominal cramps History of Present Illness: This very pleasant 76-year-old female with ongoing radiation for esophageal invasive adenocarcinoma who underwent partial esophagectomy [facility] on February 01 and currently undergoing chemotherapy with capecitabine, who presents to emergency department yesterday due to ongoing general weakness, nausea, vomiting, and abdominal pain. Patient is in her third week of radiation with a total 5 weeks planned with a plan to undergo possible chemotherapy thereafter. Patient denies any hematemesis but does endorse abdominal pain that feels like cramping, and ongoing rhinorrhea. Patient denies fevers, chills, cough, sputum production, dyspnea, hemoptysis, and low exercise tolerance. Patient presented she had a low systolic blood pressure with maps around 65. X-ray and laboratory tests initially did not reveal any source of infection. Overnight the patient developed more severe hypotension refractory to 5.5 L of fluid, bottoming out at map of 47. Patient was given norepinephrine after a peripheral line 0.02-0.05. This morning she was discussed her in CCU rounds and complete workup for septic source was discussed. This morning the patient states that she does not have a fever, chills, or lightheadedness/dizziness. She continues to have emesis. Line access was achieved this morning with PICC placed by IV therapy. Chest x-ray is not that impressive with known obvious consolidation. Patient denies any history of asthma, she was a former smoker who quit in the 1970s, any recent illness, or respiratory problems. She denies contacts. Review of Systems: Complete review of systems performed; pertinent positives and negatives per history of present illness, all other systems reviewed and are negative. PMH Past Medical History 1. Esophageal cancer 2. Tachycardia bradycardia syndrome 3. Atrial fibrillation 4. Chronic diastolic heart failure 5. GERD. 6. Essential hypertension. 7. Hypothyroidism Hx Any Other Health Problems?: YesHx Diabetes: No Surgical History Esophagectomy Colectomy Home Medications Aspirin (Aspirin) 325 Mg Tablet 325 MG PO DAILY Capecitabine (Xeloda) 500 Mg Tablet 1,650 MG PO BID takes 1650mg BID x5 weeks during RAD ONC Doxycycline Monohyd (Doxycycline Monohyd) 40 Mg Capsule 40 MG PO DAILY Escitalopram Oxalate (Lexapro) 20 Mg Tablet 20 MG PO BID Flecainide Acetate (Flecainide Acetate) 150 Mg Tablet 150 MG PO BID Levothyroxine (Synthroid) 100 Mcg Tablet 100 MCG PO DAILY Lovastatin (Lovastatin) 20 Mg Tablet 40 MG PO HS Metoprolol Tartrate (Metoprolol Tartrate) 25 Mg Tablet 25 MG PO BID Metronidazole (Metronidazole Cream) 45 Gm Cream..g. 1 APPLIC TOP BID Oxybutynin Chloride (Oxybutynin Chloride) 5 Mg Tablet 5 MG PO BID Pantoprazole DR (Pantoprazole DR) 40 Mg Tablet.dr 40 MG PO BID Potassium Chloride ER (Potassium Chloride ER) 20 Meq Tablet.er 20 MEQ PO DAILY Ondansetron ODT (Ondansetron ODT) 4 Mg Tab.rapdis 4 MG PO BID PRN PRN For Nausea Allergies: Coded Allergies: acetaminophen (Verified Allergy, Mild, diarrhea, 05/30/16) hydrocodone bitartrate (Verified Allergy, Mild, diarrhea, 05/30/16) Social History Occupation: retired Hx Alcohol Use: Yes (SPECIAL OCCASIONS)Hx Substance Use: NoHx Tobacco Use: No (QUIT IN 70'S) Smoking Status: Former Smoker (quit in 1970s) Living Arrangement: with Family Exam Vital Signs Vital Sign - Last Date Time Temp Pulse Resp B/P Pulse Ox O2 Delivery O2 Flow Rate FiO2 05/31/16 08:00 37.7 98 19 100/43 97 Nasal Cannula 3.00 Intake and Output 05/30/16 05/30/16 05/31/16 Cumulative From/Thru 15:00 23:00 07:00 05/30/16 10:45 - 05/31/16 05:21 Intake Total 120 ml 3600 ml 3720 ml Output Total 200 ml 900 ml 1100 ml Balance -80 ml 2700 ml 2620 ml Intake Oral 120 ml 100 ml 220 ml IV Total 3500 ml 3500 ml Output Urine Total 200 ml 200 ml Urine/Stool Mix 900 ml 900 ml General: Alert, Oriented X3, Cooperative Head: Normal Eyes: PERRLA Nose: Bleeding (dry blood) Mouth: Mouth Normal, Mucous Membr Moist/[place] Chest & Lungs: Chest Wall Normal, Clear to auscultation & percussion Cardiovascular: Exam Unremarkable, Regular Rate/Rhythm Abdomen: Tender (mild), Distended Musculoskeletal: Unremarkable Extremities: Warm, No heel ulcers present, Edema (mild) Skin: Other (no rashes) Neurological: Grossly Neurologically Intact Lab and Diagnostics Result Diagram: 05/31/1622505/31/16225 Assessment & Plan Assessment Assessment 1. Suspected sepsis with refractory hypotension requiring pressor support 2. Neutropenic fever 3. Hypokalemia 4. Hypoalbuminemia 5. 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 Invasive esophageal adenocarcinoma Neurological: Patient is awake alert and conversing well. Memory is intact and she is quite sprightly Cardiovascular: Patient remains tachycardic and hypotensive on norepinephrine for blood pressure control after not responding to 5.5 L of fluid. Will continue norepinephrine. Patient is tachycardic with atrial fibrillation. We will continue to monitor this and treat as necessary. the patient is off warfarin due to nosebleed and we will start heparin for DVT prophylaxis. Patient does not exhibit any chest pain currently with her EKG from yesterday reveals questionable ST depressions in leads 1, 2, 3, aVF, lateral leads Echo revealed a left hyperdynamic but normal sized ventricle ejection fraction of 70- 75%. I ventricle appears to be grossly normal. Pacemaker leads in the right ventricle. There is moderate mitral and tricuspid regurgitation. Full exam is available in chart. Respiratory: Patient is breathing and saturating well on 3 L nasal cannula with saturation 97%. Patient does have a smoking history although this is quite distant. GI: Patient presents today with moderate to severe abdominal pain of unknown cause. Patient has been receiving radiation for soft gel cancer following surgery [facility] as noted in history of present illness. She will go for CT scan this afternoon. Patient has been unable to drink the contrast due to her severe nausea. She continues to vomit was negative for blood. Suspected source of infection is GI. Infection: Patient initially presented with hypotension and numerous after light disturbances. Her demeanor through admission and today is very pleasant and she does not appear to be overly unwell. However, the patient does meet sepsis criteria with refractory hypotension to 5.5 L of fluid requiring now pressor support. Patient also received steroids for refractory sepsis. Antibiotics were changed today to include cefepime and vancomycin to cover for neutropenic fever. Pro-calcitonin is also elevated. Chest x-ray did not seem to show any obvious consolidations but we will recheck this in the morning. Blood cultures were ordered and sent to the lab today. C. difficile was also sent as well as a respiratory panel by PCR, we will await these results Renal: Patient's kidneys appear to be doing well with a creatinine of 0.81. However, the patient has a testing of 2.8 this morning. UA is negative for leukocyte esterase or nitrite, or bacteria for that matter. No culture is indicated. Patient is also on phosphorus. We will replace electrolytes as needed. Heme/onc: Patient is undergoing treatment for invasive esophageal adenocarcinoma and states that her oncologist is Dr. Cruz. Current plan as of May 02 was to undergo radiation with oral capecitabine. She currently shows pancytopenia with a white count of 1.8. Disposition: Patient is a good mood is currently being treated presumed sepsis search out a source. Patient will likely be in the ICU for next couple of days. Problems: Pain Evaluation: Adequate Pain Control VTE Mechanical Devices: Intermittant Pneumatic CD Resuscitation Status: CPR: Attempt Resuscitation Attending Statement I have seen and examined this patient with the resident physician. Vital signs , labs, imaging have been reviewed. I agree with the assessment and plan above. Please refer to my separately dictated progress note for any modifications to above. Soheila Garcia M.D. Pulmonary and Critical Care medicine Pager [phone] He Faith DO May 31, 2016 14:42 Soheila Garcia MD Jun 02, 2016 09:03
--- NOTE | 2016-05-31 15:15 | NUR ---
NUTRITION ASSESSMENT Assess: Pt is a 76 yo female admitted w/ hypotension and generalized weakness. Pt has history of esophageal cancer and recently had a partial esophagectomy. She is currently on radiation and chemotherapy. Pt is experiencing nausea, vomiting and diarrhea. Despite symptoms, pt was interested in trying clear supplements to help w/ protein intake. Per MD at rounds, pt stated having 17 loose stools the day before admission, and several days of not eating. Pt transferred to CCU last night d/t hypotension. Will be followed by dietitian at [facility] [place] upon d/c. PMHx: Esophageal cancer, tachycardia bradycardia syndrome, A fib, chronic diastolic HF, GERD, essential HTN, hypothyroidism, esophagectomy, colectomy. LABS: Na 131, K 2.8, Gluc 110, Ca 6.6, Phos 1.9, Alb 2.1, Prealbumin 5, Lipase 4, Procalcitonin 4.63 MEDICATIONS: Norepinephrine, Zofran DIET: Clear Liquid x 1 day. No PO recorded GI symptoms/stool: No BM recorded. Diarrhea noted prior to admission. Skin integrity: Vito 17 ANTHROPOMETRICS: Current Wt: 79.7 kg BMI: 33.8 kg/m2 Admit Wt: 74.6 kg IBW: 46.6 kg Previous Admit Wt (03/08/16): 84.9 kg - 6.1% wt loss in 3 months ESTIMATED NEEDS: Cancer, BMI Calories: 0030-0450 kcal/day (22-25 kcal/kg BW) Protein: 70-85 g/day (1.5-1.8 g/day IBW) Fluids: Approx. 3648-5743 ml (1 ml/kcal/day) NUTRITION DIAGNOSIS: 1) Inadequate oral intake related to GI symptoms of nausea, vomiting and diarrhea as evidenced by self-report of not eating for several days. 2) Increased nutrient needs related to demand for increased nutrients related to cancer diagnosis. INTERVENTION: 1) Add Ensure Clear on B&D tray per pt preference to help ensure adequate calorie and protein intake. 2) Add Gelatein Plus on L tray per pt preference to help ensure adequate calorie and protein intake. MONITOR/EVALUATE: PO intake, GI symptoms, diet advancement, wt, labs, nutrition status, POC. Will continue to monitor per moderate nutrition risk guidelines. Addendum: 05/31/16 at [address] Will continue to monitor per high nutrition risk guidelines. Addendum: 05/31/16 at [address] Student documentation reviewed and I agree with the above assessment. Sonja Engle, MS, RDN, CD
--- NOTE | 2016-05-31 15:18 | NUR ---
Social Work: Initial Assessment D: Per EMR review, pt is a 76 year old female admitted for hypotension, radiation induced gastritis. Pt is Medicare with for Life Supplement; pt has not LTC insurance or VA benefits. PCP is Christian Devlin MD. NOK Is Jorge Andres, son, . Advanced directives completed and on file. Readmit score is moderate, 4/8. THREAD CUTTER met with pt at bedside. Sw role explained and contact information provided. See initial assessment. Pt lives in a single-story home with 2 steps to enter. Pt lives alone and is I with ADLs. Pt uses a walker at baseline. Pt does not currently drive and has transportation assistance from the [employer] [facility] to radiation appointments. Pt states she was at a skilled rehab for a short stay in [place]. Pt states she was referred to [facility] for PT, RN however they have not yet contacted her to open for services. HH CHOICE LIST PROVIDED. Pt preference is to remain with [facility] for RN, PT. THREAD CUTTER spoke with Carlos A Oh with [facility] who states that they never received the referral. THREAD CUTTER provided access and will obtain F2F if pt is still appropriate for HH at time of discharge. A: Pt who lives at home, alone. P: Evolving; THREAD CUTTER to continue to follow and assist with dcp pending pt's clinical course. Either d/c home with [facility] for RN, PT versus SNF. THREAD CUTTER to continue to follow. AMANDA Amos Addendum: 05/31/16 at 1527 by SHYLA CORTÉS Amended: Links added.
--- NOTE | 2016-05-31 15:33 | DRSVH ---
PROCEDURE: CT ABDOMEN AND PELVIS WITH CONTRAST ([id number]) INDICATIONS: abd pain and sepsis TECHNIQUE: After the administration of intravenous contrast, 5 mm thick sections acquired from the diaphragm to the symphysis. 5 mm coronal and sagittal reformats were acquired. For radiation dose reduction, the following was used: automated exposure control, adjustment of mA and/or kV according to patient troy arteaga COMPARISON: [facility], CT, CT CHEST ABD PELVIS W CON, 12/29/2015, 17:20. [facility], CT, ABD/PELVIS W/CON (PNL), 04/21/2010, 7:48. FINDINGS: Image quality: Excellent. ABDOMEN: Lung bases: Small bilateral pleural effusions are present. There is mild dependent bibasilar atelecta sis. Solid organs: Liver and spleen are normal in size and enhancement. Gallbladder is surgically absent .. Biliary system is non dilated. Pancreas enhances normally. No adrenal nodules. Kidneys demonst rate normal size and enhancement, without hydronephrosis. Peritoneum and bowel: A moderate hiatal hernia is present. The stomach and small bowel are grossly u nremarkable. There is mild diffuse colonic distention. Diffuse fluid throughout the colon is present. There is a moderate-sized diverticulum involving the proximal descending colon at its medial aspect measuring 22 mm, and there is associated thickening of the wall of the diverticulum and adjacent colo n. Moderate flattening surrounding this diverticulum is present. Diverticulosis of the descending col on is present more distally. No pneumoperitoneum. There is a small amount of free fluid in the pelvis , left paracolic gutter, and perisplenic locations. Nodes and vessels: No retroperitoneal or mesenteric adenopathy by size criteria. Aorta and inferior vena cava are normal in size. Miscellaneous: No ventral hernias. PELVIS: Genitourinary: Bladder wall thickness is normal. Miscellaneous: No inguinal hernias or adenopathy. Bones: No suspicious bony lesions. No vertebral body compression fractures. IMPRESSION: 1. Diverticulitis of the proximal descending colon, with small amount of associated ascites. No peric olonic abscess. 2. Moderate hiatal hernia. 3. Small bilateral pleural effusions. 4. Findings discussed with Dr. Garcia on 05.31.16 at 1534 hrs. Dictated by: Cady Velasco M.D. on 05/31/2016 at 15:27 Transcribed by: RENETTA on 05/31/2016 at 15:33 Approved by: Cady Velasco M.D. on 05/31/2016 at 15:34
--- NOTE | 2016-05-31 15:55 | DRSVH ---
PROCEDURE: X-RAY PICC LINE PLACEMENT BY NURSE ([id number]) INDICATIONS: hypotension COMPARISON: None. FINDINGS: PICC was placed by the intravenous therapy team from the right side. Fluoroscopic spot fi lm demonstrates tip projected over the lower SVC. IMPRESSION: Tip of PICC projected over the lower SVC . Dictated by: Jn Arndt RRA Interpreted: Mikala Richey MD on 05/31/2016 at 15:54 Transcribed by: HILARY on 05/31/2016 at 15:54 Approved by: Mikala Richey MD, PhD on 05/31/2016 at 17:03
[2016-05-31 16:00] VITALS: BP 104/52; PULSE 109; RESP 13; O2SAT 95
--- NOTE | 2016-05-31 16:08 | ABG ---
DateTimeAnalyzed 15:54:00 -_ pH ____7.331 - 7.350 7.450 pCO2 ___34.3__ -mmHg 35.0 45.0 pO2 101 -mmHg 69.0 116 HCO3- ___17.6__ -mmol/L 22.0 26.0 ABE ___-7.0__ -mmol/L -2.0 2.0 tHb ___11.4__ -g/dL O2Hb ___96.9__ -% COHb ____0.6__ -% MetHb ____0.9__ -% sO2 ___98.4__ -% 25.0 FIO2 ___21.0__ -% Drawn By NB - Date/Time Notified____ 16:07:00 -_ Notified By NB - Notified Whom AMADO Kemal - Age 73 -years B 762 -mmHg tO2 ___15.7__ -Vol% Amado test N/A -
[2016-05-31] MEDS ORDERED: Lactated Ringer's 1,000 ML IV ONE (16:45)
[2016-05-31] MEDS: Lactated Ringer's 1,000 ML IV SCH (17:01)
[2016-05-31] MEDS ORDERED: Lactated Ringer's 500 ML IV ONE (17:20)
--- NOTE | 2016-05-31 17:26 | DRSVH ---
PROCEDURE: X-RAY CHEST ONE VIEW, PORTABLE ([id number]) INDICATIONS: "sepsis" TECHNIQUE: One view of the chest was acquired. COMPARISON: [facility], CR, XR CHEST 1VW (PORTABLE), 05/30/2016, 11:06. FINDINGS: Surgical changes and devices: Stable positioning of dual chamber cardiac pacer. Lungs and pleura: No pleural effusions or pneumothorax. Lungs are clear and interstitium is promine nt. Mediastinum: Mediastinal contours appear normal. Heart size is normal. Bones and chest wall: No suspicious bony lesions. Overlying soft tissues appear unremarkable. IMPRESSION: Interstitial prominence and mild developing edema cannot be excluded. Correlate clinical ly. Dictated by: Jn Arndt RRA Interpreted: Mikala Richey MD on 05/31/2016 at 9:35 Transcribed by: HILARY on 05/31/2016 at 9:36 Approved by: Mikala Richey MD, PhD on 05/31/2016 at 16:57
--- NOTE | 2016-05-31 17:46 | CONS ---
[address] [address] CONSULTATION REPORT PATIENT: BEBA HALL : 1940 MR#: [id number] ADMIT: 05/30/2016 JOB ID: [id number] DATE OF SERVICE: 05/31/2016 PULMONARY CRITICAL CARE CONSULTATION NOTE: The patient is a 76-year-old woman, seen at the request of Dr. Nikita Garber, for septic shock and neutropenic fever. The patient was seen and evaluated with resident physician, Dr. He Faith. Please refer to his separate detailed note from today for complete information including past medical history, social history, family history, review of systems, and complete physical exam. HISTORY OF PRESENT ILLNESS: Briefly, the patient had a partial esophagectomy January 2016 at the [facility] and has been getting chemoradiation. She presented to the hospital last night with nausea, vomiting, diarrhea, and low blood pressure. Despite 4 L of IV fluids her blood pressure continued to drop and she was started on low-dose norepinephrine. Her lactate improved with resuscitation. She continues to feel quite poorly but denies any chest pain, shortness of breath. She did spike a temperature overnight to 38.6. As mentioned previously past medical history, social history, family history, review of systems, and complete physical exam are as per Dr. Faith's note. PHYSICAL EXAMINATION: T-max of 38.6, pulse 104, respirations 25, BP 100/43, sats 97% on 2-3 L nasal cannula. General: Pale elderly woman, lying in bed. Alert, answering questions, although appears ill. Neck: No cervical lymphadenopathy HEENT: Oral mucosa is somewhat dry. Chest: Clear to auscultation. Abdomen: Diffusely tender. Heart: Regular rate, rhythm. Skin: No rashes. Extremities: No cyanosis, clubbing, edema. LABORATORIES: Reviewed. WBC today is 1.8 with 26% neutrophils and 18% bands in total, however her absolute neutrophil count is around 900, making her neutropenic. Hemoglobin 10. Platelets 110, down from 187. Chemistry reviewed and notable for hypokalemia with potassium of 2.8, creatinine stable at 0.81, calcium 6.6, lactate is down to 1.5 from 2.8, procalcitonin is 4.63. LFTs are normal. Albumin 2.1. Cultures: Respiratory viral PCR was done and negative. Blood cultures pending. Urine culture: No growth. IMAGING: Chest x-ray reviewed. Normal. Abdominal CT ordered and pending. ASSESSMENT: 1. Septic shock. 2. Neutropenic fever. 3. Suspected gastroenteritis. 4. Esophageal cancer status post partial esophagectomy January 2016. Currently getting chemoradiation. 5. Hypokalemia. RECOMMENDATIONS: A 76-year-old woman status post partial esophagectomy for esophageal cancer and currently getting chemoradiation admitted with neutropenia, fever, and septic shock. Symptoms all point towards an abdominal source. LFTs are normal. She has had good fluid resuscitation and is now on low-dose norepinephrine infusion. She had a PICC line placed for pressor infusion and also an arterial catheter placed for monitoring. Her lactate is down and renal function is good, with good urine output. Will continue with IV fluid bolus. She is also getting hydrocortisone IV. We started her on broad-spectrum antibiotics overnight. She is currently on vancomycin, Zosyn, and levofloxacin. I added p.o. vancomycin for the possibility of C. difficile colitis given her recent diarrhea. We ordered an abdominal CT with contrast looking for a source of infection. Respiratory viral PCR was ordered and this is negative as well. She is getting subcu heparin for DVT prophylaxis. She has been on Coumadin for atrial fibrillation so we will see what her INR is before initiating this. It appears she is a FULL CODE. CRITICAL CARE TIME: 60 minutes
--- NOTE | 2016-05-31 18:42 | NUR ---
Hypotension/BM/nausea/pain Pt on pressors (see CCU flow sheet) throughout shift. Fluids also given. ART and PICC line placed, pt tolerated well. Pt able to help turn independently and get on bed phillips. Pt has had a few urine/stool mix, but no BM that we can send for sample so far. Pt also has intermittent nausea, zofran 4mg with good relief. Dilaudid 1mg IV push moderate to good relief for 6/10 abdominal pain. Pt A&O x3, pleasant and cooperative. 3L NC at 97%. Mepilex placed for blanchable redness on sacrum. Frequent rounding continues.
[2016-05-31] MEDS: metroNIDAZOLE Inj 500 MG in IV Premix 1 EACH IV SCH (18:52)
[2016-05-31 19:37] LABS: TROPONIN T < 0.010 ug/L (0.0-0.011)
[2016-05-31 20:30] VITALS: BP 141/67; PULSE 112; O2SAT 94
[2016-05-31] MEDS: Cefepime Inj 2,000 MG in Dextrose 5% Minibag Plus 100 ML IV SCH (20:57)
[2016-05-31] MEDS ORDERED: KCl 40 mEq/100 mL (CENTRAL) 40 MEQ in IV Premix 1 EACH IV ONE (21:20)
[2016-05-31] MEDS ORDERED: 0.9% Sodium Chloride 500 ML ONE (21:29)
--- NOTE | 2016-05-31 23:28 | PROCED ---
[address] [address] PROCEDURE NOTE PATIENT: BEBA HALL : 1940 MR#: [id number] ADMIT: 05/30/2016 JOB ID: [id number] DATE OF SERVICE: 05/31/2016 POSTOPERATIVE DIAGNOSIS(ES): PREOPERATIVE DIAGNOSIS(ES): SURGEON: PROCEDURE: Arterial catheter placement. INDICATION: Hypotension, shock. PROCEDURE: Informed consent was obtained from the patient after risks and benefits discussed. An attempt was made at a left radial artery catheter. Initial attempt was by Kirsten Mejias, resident physician, who made three attempts in total under ultrasound guidance. On one attempt we were able to access the artery with a flashback, but the catheter could not be threaded. Because of the patient's discomfort we gave a significant amount of lidocaine. I then attempted about three times [address] place the catheter and finally we got a flash of blood from the left radial artery and the catheter passed easily. It was secured by IV therapy. No complications. MEDICATIONS: Lidocaine 1%, 3 cc administered subcutaneously. Ultrasound guidance was used for this procedure.
[2016-06-01] MEDS: Hydrocortisone 50 mg/mL 2 mL Inj IVPUSH SCH ×3 (00:09→16:21)
[2016-06-01] MEDS: metroNIDAZOLE Inj 500 MG in IV Premix 1 EACH IV SCH ×3 (00:09→16:20)
[2016-06-01] MEDS: Heparin 5,000 Unit/mL Inj SUBQ SCH ×3 (00:09→16:14)
[2016-06-01 00:30] VITALS: BP 99/58; PULSE 105; RESP 16; O2SAT 96
[2016-06-01] MEDS: Lactated Ringer's 1,000 ML IV SCH ×3 (02:09→17:57)
[2016-06-01] MEDS: Vancomycin 100 mg/mL Oral Solution PO SCH (02:23)
[2016-06-01 04:30] VITALS: BP 132/70; PULSE 132; RESP 19; O2SAT 95
[2016-06-01] MEDS: Vasopressin Inj 20 UNIT in 0.9% Sodium Chloride 100 ML IV SCH (04:48)
[2016-06-01 05:43] LABS: BASOPHILS % (AUTO) 0 % (0-3); Mean Corpuscular Hemoglobin 29.5 pg (27.0-35.0); Mean Corpuscular Volume 85.7 fL (81-100); Platelet Count 180 bil/L (150-400)
[2016-06-01 06:00] LABS: INR 3.27 ratio
[2016-06-01 06:03] LABS: EOSINOPHILS % (AUTO) 0 % (0-5); MONOCYTES % (AUTO) 28 % (4-12); NEUTROPHILS % (AUTO) 22 % (40-74)
--- NOTE | 2016-06-01 06:06 | NUR ---
P: hypotension I: levophed drip E: Levophed from hold to 0.12mcg to keep SBP > 80, MAP > 65. Tele A fib, rates 100-120s, rare paced beat. Afebrile. A/O. Denies pain, N/V. Large amounts of urine mixed w/ liquid green stool via bedpan. Receive K+ rider. Tolerating clear liquids. Occasional exertional dyspnea. RA sats asleep =87%. 2L NC keeps sats > 92%. Able to sleep tonight per pt.
[2016-06-01 06:16] LABS: Magnesium 1.8 mg/dL (1.6-2.6); Phosphorus 1.1 mg/dL (2.5-4.9)
[2016-06-01] MEDS ORDERED: KCl 40 mEq/100 mL (CENTRAL) 40 MEQ in IV Premix 1 EACH IV ONE (07:20)
[2016-06-01 08:26] VITALS: BP 130/67; PULSE 137; RESP 13; O2SAT 97
--- NOTE | 2016-06-01 09:30 | PROG NOTE ---
[address] [address] PROGRESS NOTE PATIENT: BEBA HALL : 1940 MR#: [id number] ADMIT: 05/30/2016 JOB ID: [id number] DATE: 05/31/2016 IDENTIFYING DATA: This is a 76-year-old woman who has been treated with radiation therapy with concurrent capecitabine postoperatively for esophageal cancer. She had esophagectomy February 01 and is on concurrent chemoradiotherapy, developed severe weakness, diarrhea up to 17 times a day and nausea with multiple episodes of emesis and was hospitalized for this and fluid and electrolyte abnormalities on May 30, 2016. She was hospitalized because of the inability to bring her blood pressure up in the emergency department. At the time of admission, she had had a blood pressure improvement to 100/60. She was found to have hypotension, hypokalemia, hypomagnesemia as well as a history of chronic diastolic heart failure. She is treated with fluid resuscitation and symptomatic management of her nausea and diarrhea. In my discussions with her, it became evident that she did not know to stop her capecitabine when she developed diarrhea and continued to take it despite that, which clearly exacerbated the severity of her illness. She is now improved but still very weak. CURRENT LABORATORY VALUES: Include a white count of 1.8 with 26% neutrophils, 16% lymphs, 38% monos suggesting a recovery of bone marrow. Platelets 110, hemoglobin 10.0, hematocrit 30.3. That is today. On admission she had a sodium 130, potassium 2.9, BUN 14, creatinine 1.07, magnesium 1.1, calcium 8.3. Currently, the sodium remains low at 128, potassium improved to 3.1, BUN 8, creatinine 0.57, calcium 7.1. Lactic acid was 2.1 in mid day. Subjectively, she states that she feels better but is still quite weak. Her diarrhea is abating. She has no pain and minimal nausea. She is able to take some clear liquids. The remainder of the 14 system review is negative. PHYSICAL EXAMINATION: Her vital signs show a temperature of 37.6, pulse 109, respiratory rate 13, blood pressure 104/52, pulse ox 95% on 1 L although she is not on O2 at this time. General: She looks comfortable and talkative. Head and neck: Normal skin and hair. Pupils equal, round and reactive. No icterus or conjunctivitis. Oral mucosa is somewhat dry. Teeth in good repair. Lymph nodes are negative in the neck. Lungs clear to auscultation anteriorly and laterally. Cardiac rhythm is regular without murmur or peripheral edema. Abdomen: Some generalized mild tenderness. No masses or organomegaly. ASSESSMENT AND RECOMMENDATIONS: 1. Dehydration with severe diarrhea secondary to chemoradiation for postoperative therapy for esophageal cancer. The patient's continuing to take capecitabine was the main cause, in my opinion, of her worsened diarrhea and she should be able to recover fully. I am still somewhat worried about the possibility of developing colitis which can happen with high doses of capecitabine. The CT of the abdomen performed on May showed diverticulitis of the proximal descending colon, small amount of ascites, no pericolic abscess, no evidence of a colitis, however. 2. 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 It was resected with a RHO resection February 02, 2016, by Dr. Rendon at [facility]. It should be reported that most patients with esophageal cancer have preoperative chemoradiation therapy for a number of reasons which were detailed in Dr. Rendon's notes. This was not done and she instead is receiving postoperative chemoradiotherapy.
[2016-06-01] MEDS: Famotidine Inj 20 MG in IV Premix 1 EACH IV SCH ×2 (09:39→20:41)
[2016-06-01] MEDS: Cefepime Inj 2,000 MG in Dextrose 5% Minibag Plus 100 ML IV SCH ×2 (09:39→20:42)
[2016-06-01 12:30] VITALS: BP 138/97; PULSE 98; RESP 16; O2SAT 96
--- NOTE | 2016-06-01 14:12 | PROG NOTE ---
[address] [address] PROGRESS NOTE PATIENT: BEBA HALL : 1940 MR#: [id number] ADMIT: 05/30/2016 JOB ID: [id number] DATE: 06/01/2016 PULMONARY CRITICAL CARE PROGRESS NOTE: The patient is a 76-year-old woman with esophageal cancer, status post partial esophagectomy, currently on chemoradiation. Admitted with septic shock and neutropenic fever likely due to diverticulitis. INTERVAL HISTORY: Symptomatically, she says she feels better. As of this morning, she was still on norepinephrine but it is almost completely weaned off now. REVIEW OF SYSTEMS: Continues to have diarrhea. Abdominal pain improved. Denies fevers or chills. T-max yesterday night was 37.6. PHYSICAL EXAMINATION: Vital signs reviewed. Temperature 36.5, pulse 132, respirations 13, BP 130/67, sats 97% on room air. General: Elderly woman appearing younger than stated age. She is pleasant, alert and oriented, and appropriate. Chest is clear. Abdomen slightly tender and distended. LABORATORIES: Reviewed. WBC 4.1, up from 1.8. She is no longer neutropenic. Platelets 180, up from 110. Chemistry reviewed. Creatinine 0.5. Remaining labs are normal, except potassium of 3.1. Procalcitonin is 2.9 today, down from 4.6. Cultures, respiratory viral PCR is negative. Stool for C. diff and other PCRs are negative. Blood cultures negative. IMAGING: CT of the abdomen and pelvis done yesterday shows evidence of diverticulitis of the descending colon with small free fluid and no abscess, very small bilateral pleural effusions. ASSESSMENT AND RECOMMENDATIONS: 1. Septic shock. 2. Neutropenic fever. 3. Diverticulitis. 4. Esophageal cancer, status post partial esophagectomy, currently on chemoradiation. She was on p.o. capecitabine, which was stopped because of current sepsis. A 76-year-old woman with esophageal carcinoma, currently on oral capecitabine and radiation. Admitted with septic shock. Currently on low-dose norepinephrine. Likely source appears to be diverticulitis. She is on cefepime and Flagyl. We stopped p.o. vancomycin and IV vancomycin because of negative Clostridium difficile and negative methicillin-resistant Staphylococcus aureus nasal swab. She is continuing to slowly improve and if she remains off of pressors overnight, I think it would be okay for her to move out of the ICU to the floor. I would continue cefepime and Flagyl, however. She is also getting hydrocortisone 100 mg IV q.8 h. If she is off pressors, we could cut this in half to 50 q.8 h. for another 24 hours and then stop it completely. I am available for questions of any tomorrow. Please do not hesitate to call me. CRITICAL CARE TIME: 30 minutes.
--- NOTE | 2016-06-01 14:24 | PCM.PNMED ---
Subjective Date of Service Jun 01, 2016 Subjective She is feeling better today. Less abdominal pain. Some appetite. No diarrhea. A dry cough. No chest pain or dyspnea. No fevers or chills. Exam Vital Signs Vital Sign - Last Date Time Temp Pulse Resp B/P Pulse Ox O2 Delivery O2 Flow Rate FiO2 06/01/16 08:26 36.5 137 13 130/67 97 Room Air 06/01/16 04:30 2.00 Intake and Output 05/31/16 05/31/16 06/01/16 Cumulative From/Thru 15:00 23:00 07:00 05/30/16 10:45 - 06/01/16 06:01 Intake Total 3454 ml 2323 ml 9497 ml Output Total 1350 ml 2550 ml 5000 ml Balance 2104 ml -227 ml 4497 ml Intake Oral 650 ml 100 ml 970 ml IV Total 2804 ml 2223 ml 8527 ml Output Urine Total 1100 ml 1300 ml Urine/Stool Mix 250 ml 2550 ml 3700 ml # Voids 2 2 Exam Alert oriented 3, no distress. Fluent speech Anicteric sclera Neck supple. Lungs are clear with normal effort. Heart is regular without murmur gallop or rub. Abdomen is soft much less tender in the right left lower quadrants. Extremities are free of edema and good pedal pulses. Skin is free of rash or lesions. IVs and Medications Medications Reviewed: Medications were reviewed in detail Lab and Diagnostics Result Diagram: 06/01/16 0440 06/01/16 0440 X-Rays, CTs and MRIs PROCEDURE: X-RAY CHEST ONE VIEW, PORTABLE ([id number]) INDICATIONS: SHORTNESS OF BREATH TECHNIQUE: One view of the chest was acquired. COMPARISON: [facility], CR, XR CHEST 1VW (PORTABLE), 08/17/2015, 15: 41. FINDINGS: Surgical changes and devices: Dual-lead cardiac pacer is stable. Lungs and pleura: No pleural effusions or pneumothorax. Lungs are clear. Mediastinum: Mediastinal contours appear normal. Heart size is normal. Bones and chest wall: No suspicious bony lesions. Overlying soft tissues appear unremarkable. IMPRESSION: No acute cardiopulmonary disease process. Dictated by: Mikala Richey MD, PhD on 05/30/2016 at 11:27 Approved by: Mikala Richey MD, PhD on 05/30/2016 at 11:28 Assessment & Plan 1. Septic shock, POA. She is improving. She is continuing require fluid resuscitation and is being weaned off the norepinephrine. Clinically she appears responded for antibiotics for her source of infection, diverticulitis. 2. Neutropenic fever, POA. Resolved. 3. Diverticulitis, probably POA. She is currently responding well to her antibiotics. She will be continued on cefepime and vaginal. Vancomycin is discontinued. C. difficile toxin is negative. 4. Lactic acidosis . POA. Resolved 5. Mild hypokalemia, POA. Corrected. 6. Hypomagnesemia, POA. Corrected. 7. Esophageal cancer, status post esophagectomy currently on chemoradiation therapy. POA. 8. Chronic diastolic heart failure, POA. Currently compensated. Follow for symptoms that she is fluid resuscitated. 9. Essential hypertension, POA. Hold meds until fluid resuscitated. Patient is full resuscitation this was discussed with her and her son today. She is admitted patient's status Pain Evaluation: Adequate Pain Control VTE Mechanical Devices: Intermittant Pneumatic CD Resuscitation Status: CPR: Attempt Resuscitation Time spent 35 minutes Nikita Garber MD Jun 01, 2016 14:24
[2016-06-01] MEDS: HYDROmorphone 1 mg/mL Inj IVPUSH PRN (14:31)
[2016-06-01] MEDS ORDERED: Lactated Ringer's 1,000 ML IV ONE (16:10)
[2016-06-01 16:30] VITALS: BP 117/71; PULSE 92; RESP 19; O2SAT 98
--- NOTE | 2016-06-01 18:16 | NUR ---
HEMODYNAMICS/DIARRHEA Patient remains on pressors, although was off for short time today. Current dose of Levophed is 0.05 mcg/kg/min, and patient received 1000 mL LR bolus this evening as well. ART line intact, adequate waveform, but patient continues to move tubing around, and some readings are not accurate. She remains in AFib, although rate is controlled since restarting home medications. Patient continues to have liquid, green diarrhea, but has reported less frequency. Will continue to monitor vitals, titrate Levophed as needed.
[2016-06-01 20:37] VITALS: BP 95/62; PULSE 105; RESP 20; O2SAT 97
[2016-06-02] VITALS (8 sets, daily range): BP systolic 87–104; BP diastolic 54–67; PULSE 90–104; RESP 16–20; O2SAT 92–97
[2016-06-02] MEDS: Heparin 5,000 Unit/mL Inj SUBQ SCH ×3 (00:05→17:04)
[2016-06-02] MEDS: metroNIDAZOLE Inj 500 MG in IV Premix 1 EACH IV SCH ×3 (00:17→16:52)
[2016-06-02] MEDS: Hydrocortisone 50 mg/mL 2 mL Inj IVPUSH SCH ×3 (00:17→17:03)
[2016-06-02] MEDS: Lactated Ringer's 1,000 ML IV SCH ×3 (01:36→17:07)
[2016-06-02] MEDS ORDERED: 0.9% Sodium Chloride 250 ML ONE (05:06)
[2016-06-02 05:31] LABS: Mean Corpuscular Hemoglobin 29.4 pg (27.0-35.0); Mean Corpuscular Volume 85.2 fL (81-100)
--- NOTE | 2016-06-02 07:16 | NUR ---
Confusion / pressors Patient woke up for midnight assessment very confused and disoriented. Patient believed she was in an apartment and was displaying paranoid like behavior. Patient attempting to exit the bed and states she will pull out her arterial line. Patient able to be calmed down after one hour at the bedside talking with patient. She remained slighty confused but was able to relax enough to fall asleep again. Dale alarm in place. Patient woke up at 0530 tearful and apologetic of behavior in the middle of the night. Patient is oriented x 3. Patient continues to feel like she can hear her 'son talking in the next room' but understands that he is not here right now. Levophed titrated to standby at 0600. MAP 60-70. Art line with good pleth.
--- NOTE | 2016-06-02 07:55 | PCM.PNMED ---
Subjective Date of Service Jun 02, 2016 Subjective She feels better today. Her bowel pain is resolved. Her diarrhea is not sure into more formed stools. No chest pain or dyspnea. She did have delirium last night with hallucinations but feels more oriented today. No difficulty with urination. No fevers or chills. Exam Vital Signs Vital Sign - Last Date Time Temp Pulse Resp B/P Pulse Ox O2 Delivery O2 Flow Rate FiO2 06/02/16 05:00 104 06/02/16 00:46 36.4 20 104/63 97 Room Air 06/01/16 20:37 2.00 Intake and Output 06/01/16 06/01/16 06/02/16 Cumulative From/Thru 15:00 23:00 07:00 05/30/16 10:45 - 06/02/16 06:42 Intake Total 2625 ml 1823 ml 20485 ml Output Total 1500 ml 2000 ml 8500 ml Balance 1125 ml -177 ml 5445 ml Intake Oral 970 ml IV Total 2625 ml 1823 ml 57764 ml Output Urine Total 1500 ml 1200 ml 4000 ml Urine/Stool Mix 800 ml 4500 ml # Voids 2 # Bowel Movements 2 1 3 Exam Alert oriented 3. No distress. Fluent speech. Icteric sclera. Neck supple Lungs are clear with normal effort and rate. Heart is regular without murmur gallop or rub. Abdomen is nontender. No edema and good pedal pulses. IVs and Medications Medications Reviewed: Medications were reviewed in detail Lab and Diagnostics Result Diagram: 06/02/16 0500 06/02/16 0500 X-Rays, CTs and MRIs PROCEDURE: X-RAY CHEST ONE VIEW, PORTABLE ([id number]) INDICATIONS: SHORTNESS OF BREATH TECHNIQUE: One view of the chest was acquired. COMPARISON: [facility], CR, XR CHEST 1VW (PORTABLE), 08/17/2015, 15: 41. FINDINGS: Surgical changes and devices: Dual-lead cardiac pacer is stable. Lungs and pleura: No pleural effusions or pneumothorax. Lungs are clear. Mediastinum: Mediastinal contours appear normal. Heart size is normal. Bones and chest wall: No suspicious bony lesions. Overlying soft tissues appear unremarkable. IMPRESSION: No acute cardiopulmonary disease process. Dictated by: Mikala Richey MD, PhD on 05/30/2016 at 11:27 Approved by: Mikala Richey MD, PhD on 05/30/2016 at 11:28 Assessment & Plan 1. Septic shock, POA. She is improving. She is continuing require fluid resuscitation and is being weaned off the norepinephrine. Clinically she appears responded for antibiotics for her source of infection, diverticulitis.Norepi on standby as of 06:00. 2. Neutropenic fever, POA. Resolved. 3. Diverticulitis, probably POA. She is currently responding well to her antibiotics. She will be continued on cefepime and metronidazol. Vancomycin is discontinued. C. difficile toxin is negative. 4. Lactic acidosis . POA. Resolved 5. Mild hypokalemia, POA. Corrected. 6. Hypomagnesemia, POA. Corrected. 7. Esophageal cancer, status post esophagectomy currently on chemoradiation therapy. POA. 8. Chronic diastolic heart failure, POA. Currently compensated. Follow for symptoms that she is fluid resuscitated. 9. Essential hypertension, POA. Hold meds until fluid resuscitated. Patient is full resuscitation this was discussed with her and her son today. She is admitted patient's status Will turn off oxygen this am and follow sats. Pain Evaluation: Adequate Pain Control VTE Mechanical Devices: Intermittant Pneumatic CD Resuscitation Status: CPR: Attempt Resuscitation Time spent 30 min Nikita Garber MD Jun 02, 2016 07:55
[2016-06-02] MEDS ORDERED: Vancomycin Serum Trough XX ONE (08:00)
[2016-06-02 08:17] LABS: INR 5.97 ratio
[2016-06-02] MEDS: Cefepime Inj 2,000 MG in Dextrose 5% Minibag Plus 100 ML IV SCH ×2 (08:36→21:15)
[2016-06-02] MEDS: Famotidine Inj 20 MG in IV Premix 1 EACH IV SCH ×2 (08:37→21:16)
[2016-06-02] MEDS ORDERED: Potassium Phos (mMol) Inj 30 MMOL in Dextrose 5% 250 ML IV ONE (08:40)
--- NOTE | 2016-06-02 10:17 | NUR ---
NUTRITION FOLLOW-UP: Assess: 76 YO female with esophageal cancer, status post partial esophagectomy, currently on chemoradiation, admitted with septic shock and neutropenic fever, likely due to diverticulitis. Nausea, vomiting and diarrhea have improved significantly, and patient will likely step down to PCU status today. Her diet has been advanced to mechanical soft with supplements. PO intake not recorded. Will be followed by dietitian at [facility] upon d/c. PMHx: Esophageal cancer, tachycardia bradycardia syndrome, A fib, chronic diastolic HF, GERD, essential HTN, hypothyroidism, esophagectomy, colectomy. LABS: K+ 2.9, BUN 5, Cr 0.50, Glu 135, A1c 6.0, Ca 7.7, Alb 2.4. MEDICATIONS: Synthroid. DIET: Mechanical soft x 1 D. PO intake not recorded. Pt. tolerated clear liquids with supplements well. GI symptoms/stool: BM x 1 today. Diarrhea noted prior to admission. Skin integrity: Vito 17. ANTHROPOMETRICS: Current Wt: 84.6 kg BMI: 35.0 kg/m2 Admit Wt: 74.6 kg IBW: 46.6 kg Previous Admit Wt (03/08/16): 84.9 kg - 6.1% wt loss in 3 months ESTIMATED NEEDS: Cancer, BMI Calories: 2828-4620 kcal/day (22-25 kcal/kg BW) Protein: 70-85 g/day (1.5-1.8 g/day IBW) Fluids: Approx. 6246-6790 ml (1 ml/kcal/day) NUTRITION DIAGNOSIS: 1) Inadequate oral intake related to GI symptoms of nausea, vomiting and diarrhea as evidenced by self-report of not eating for several days - IMPROVED. 2) Increased nutrient needs related to demand for increased nutrients related to cancer diagnosis - PERSISTS. INTERVENTION: 1) Will add Ensure and Magic Cups to trays to enhance kcal / protein intake. MONITOR/EVALUATE: PO intake, GI symptoms, diet advancement, wt, labs, nutrition status, POC. Will continue to monitor per moderate nutrition risk guidelines.
--- NOTE | 2016-06-02 12:35 | PROG NOTE ---
[address] [address] PROGRESS NOTE PATIENT: BEBA HALL : 1940 MR#: [id number] ADMIT: 05/30/2016 JOB ID: [id number] DATE: 06/02/2016 PULMONARY/CRITICAL CARE PROGRESS NOTE: The patient is a 76-year-old woman with esophageal cancer status post partial esophagectomy, on chemoradiation, admitted with diverticulitis and septic shock. INTERVAL HISTORY: She was weaned off pressors briefly yesterday and then back on overnight and again weaned off early hours of this morning. She says she feels well. Still having diarrhea but abdominal pain, nausea, and vomiting are much better. No fevers. REVIEW OF SYSTEMS: As above. PHYSICAL EXAMINATION: Vital signs reviewed. Temperature 36.4, pulse 99, respirations 17, BP 99/59, sats 97% on 1 L nasal cannula. General: Alert, oriented, pleasant. Chest: Clear to auscultation. Abdomen: Slightly distended but really not tender. LABORATORIES: Reviewed. WBC up to 4.9 from 4.1. Chemistry reviewed and within normal limits, except for potassium of 2.9. Procalcitonin is down to 1.86 from 2.9. Cultures: No growth. ASSESSMENT: 1. Septic shock. 2. Diverticulitis. 3. Neutropenic fever. 4. Esophageal cancer, status post partial esophagectomy in January 2016. Currently on chemoradiation. She has been on p.o. capecitabine. RECOMMENDATIONS: She is currently off vasopressors. Remains on Flagyl and cefepime, slowly improving. Blood pressure is in the 90s but she says this is her baseline. She is making good urine and but still having diarrhea. She is getting IV fluid LR at 125. I wonder if we should switch this to something with potassium because we are constantly having problems with hypokalemia. Really no other active issues from a pulmonary critical care standpoint. If she stays off pressors all day today, then I think it is reasonable to remove her art line and move her out of the ICU. TIME: Critical care time 30 minutes.
--- NOTE | 2016-06-02 16:29 | NUR ---
BLOOD PRESSURES/DOWNGRADE TO PCC Patient off Levophed since 0600 on NOC shift, continued into current shift. Blood pressures continue to be 80s-90s/50s-60s, but patient and family members state this is her baseline at home. HR has been controlled since restarting Flecainide and Metoprolol, remains AFib in the 90s. Maintaining SpO2 in mid to high 90s on RA, but does require 1L NC while asleep. No reports of n/v or abdominal pain, tolerating PO intake well. Orders received to downgrade patient to PCC w/ tele. Report given to Ayush Oneal RN on PCC.
--- NOTE | 2016-06-02 16:30 | NUR ---
Downgrade from CCU Pt. was taken to room 2028 PCC from room 2014 CCU. Pts. blood pressure was hypotensive but from report this is her baseline. Pt. does not c/o CP, SOB, or any other type of pain. Pt. is AFIB with HR controlled per report. DEE DEE, Garrick and NS running at this time. Transfer report given by CHRISTIAN Barron
--- NOTE | 2016-06-02 16:46 | NUR ---
Evaluation completed. Please go to "Notes" then click on "Assessments and Notes" (bottom left corner of screen). Then select appropriate discipline tab on top of screen.
[2016-06-02] MEDS: KCl 40 mEq/100 mL IV Premix (K < 3 & Creat <2) IV SCH (23:55)
[2016-06-03] VITALS (11 sets, daily range): BP systolic 93–115; BP diastolic 46–75; PULSE 82–114; RESP 14–20; O2SAT 91–99
[2016-06-03] MEDS: Heparin 5,000 Unit/mL Inj SUBQ SCH ×3 (00:30→16:30)
[2016-06-03] MEDS: metroNIDAZOLE Inj 500 MG in IV Premix 1 EACH IV SCH ×3 (01:02→16:44)
[2016-06-03] MEDS: Lactated Ringer's 1,000 ML IV SCH ×3 (01:02→16:50)
[2016-06-03] MEDS: Hydrocortisone 50 mg/mL 2 mL Inj IVPUSH SCH ×3 (01:29→16:41)
[2016-06-03] MEDS: KCl 40 mEq/100 mL IV Premix (K < 3 & Creat <2) IV SCH ×2 (03:43→22:34)
--- NOTE | 2016-06-03 06:04 | NUR ---
Potassium/Diarrhea/BP/Activity Pt's potassium was 2.9 after pt received 80MEQ during the dayshift so another 80MEQ was ordered for the pt. The 2nd bag of 40MEQ potassium is still running at this time so unable to draw lab until the infusion is completed. Pt has had multiple episodes of green diarrhea and a one time dose of Imodium 2mg was ordered. Pt's BP during HS medication pass was 88/59 so pt's metoprolol was held. Pt has been weak and very unsteady when ambulating to the bathroom and at this time requires a 2 person assist with a FWW to bathroom.
[2016-06-03] MEDS: Famotidine Inj 20 MG in IV Premix 1 EACH IV SCH ×2 (09:06→19:45)
[2016-06-03] MEDS: Cefepime Inj 2,000 MG in Dextrose 5% Minibag Plus 100 ML IV SCH ×2 (09:17→21:09)
[2016-06-03 09:36] LABS: Mean Corpuscular Hemoglobin 29.2 pg (27.0-35.0); Mean Corpuscular Volume 85.1 fL (81-100)
[2016-06-03] MEDS ORDERED: KCl 40 mEq/100 mL Premix (K 3 - 3.7 & Creat < 2) IV ONE (11:25)
--- NOTE | 2016-06-03 12:30 | PCM.PNMED ---
Subjective Date of Service Jun 03, 2016 Subjective She is doing well today. One loose stool. Minimal abdominal pain. No nausea or vomiting. Good appetite. No chest pain cough or shortness of breath. No problems with urination. She is able to walk to the bathroom without difficulty. Exam Vital Signs Vital Sign - Last Date Time Temp Pulse Resp B/P Pulse Ox O2 Delivery O2 Flow Rate FiO2 06/03/16 12:07 36.5 93 18 94/62 98 Room Air 06/03/16 04:15 1.00 Intake and Output 06/02/16 06/02/16 06/03/16 Cumulative From/Thru 15:00 23:00 07:00 05/30/16 10:45 - 06/03/16 05:30 Intake Total 2064 ml 865 ml 70581 ml Output Total 100 ml 500 ml 9100 ml Balance 1964 ml 365 ml 7774 ml Intake Oral 250 ml 200 ml 1420 ml IV Total 1814 ml 665 ml 12396 ml Output Urine Total 500 ml 4500 ml Urine/Stool Mix 100 ml 4600 ml # Voids 2 # Bowel Movements 1 6 10 Exam #23, no distress. Anicteric sclera. Neck supple. Lungs are clear with normal effort and right. Heart is irregular without murmur gallop or rub Abdomen is soft nontender Extremities are free of edema. Lab and Diagnostics Result Diagram: 06/03/1690406/03/16904 X-Rays, CTs and MRIs PROCEDURE: X-RAY CHEST ONE VIEW, PORTABLE ([id number]) INDICATIONS: SHORTNESS OF BREATH TECHNIQUE: One view of the chest was acquired. COMPARISON: [facility], CR, XR CHEST 1VW (PORTABLE), 08/17/2015, 15: 41. FINDINGS: Surgical changes and devices: Dual-lead cardiac pacer is stable. Lungs and pleura: No pleural effusions or pneumothorax. Lungs are clear. Mediastinum: Mediastinal contours appear normal. Heart size is normal. Bones and chest wall: No suspicious bony lesions. Overlying soft tissues appear unremarkable. IMPRESSION: No acute cardiopulmonary disease process. Dictated by: Mikala Richey MD, PhD on 05/30/2016 at 11:27 Approved by: Mikala Richey MD, PhD on 05/30/2016 at 11:28 Assessment & Plan 1. Septic shock, POA. Resolved. She is now off pressors and being maintained on a lower rate of IV fluids. 2. Neutropenic fever, POA. Resolved. 3. Diverticulitis, probably POA. (Primary diagnosis today). She is currently responding well to her antibiotics. She will be continued on cefepime and metronidazol. Vancomycin is discontinued. C. difficile toxin is negative. 4. Lactic acidosis . POA. Resolved 5. Mild hypokalemia, POA. Corrected. 6. Hypomagnesemia, POA. Corrected. 7. Esophageal cancer, status post esophagectomy currently on chemoradiation therapy. POA. 8. Chronic diastolic heart failure, POA. Currently compensated. Follow for symptoms that she is fluid resuscitated. 9. Essential hypertension, POA. Hold meds until fluid resuscitated. 10. Patient is more atrial fibrillation. POA. The patient is doing well with resumption of flexion and metoprolol and continue to monitor for any evidence of rapid ventricular response. This is not been a problem recently. We will continue physical therapy and advanced diet. We are going to alternate her metoprolol and flecainide for her paroxysmal atrial fibrillation as the 2 of them together tend to make her feel weaker. Possible discharge home in 1-2 days. Pain Evaluation: Adequate Pain Control VTE Mechanical Devices: Intermittant Pneumatic CD Resuscitation Status: CPR: Attempt Resuscitation Time spent 30 minutes Nikita Garber MD Jun 03, 2016 12:30
[2016-06-03 17:58] LABS: Magnesium 1.6 mg/dL (1.6-2.6)
--- NOTE | 2016-06-03 18:46 | NUR ---
Potassium/Diarrhea Pts. potassium was 3.2 and MD ordered 40MEQ IV. Pt. this morning had 2 episodes of green liquid diarrhea,but this afternoon she has had no episode of diarrhea. Pt. has no c/o pain. SOB, or CP. Pt. is sitting at bedside eating dinner at this time.
[2016-06-04] VITALS (7 sets, daily range): BP systolic 95–112; BP diastolic 6–79; PULSE 71–107; RESP 14–20; O2SAT 92–99
[2016-06-04] MEDS: Heparin 5,000 Unit/mL Inj SUBQ SCH ×3 (00:30→16:30)
[2016-06-04] MEDS: metroNIDAZOLE Inj 500 MG in IV Premix 1 EACH IV SCH ×3 (00:59→15:10)
[2016-06-04] MEDS: Lactated Ringer's 1,000 ML IV SCH ×3 (00:59→21:18)
[2016-06-04] MEDS: Hydrocortisone 50 mg/mL 2 mL Inj IVPUSH SCH ×2 (01:01→08:01)
[2016-06-04] MEDS: KCl 40 mEq/100 mL IV Premix (K < 3 & Creat <2) IV SCH (01:45)
[2016-06-04] MEDS ORDERED: 0.9% Sodium Chloride 100 ML ONE (06:54)
[2016-06-04 07:23] LABS: EOSINOPHILS % (AUTO) 0 % (0-5); Mean Corpuscular Hemoglobin 29.4 pg (27.0-35.0); Mean Corpuscular Volume 85.8 fL (81-100); Platelet Count 176 bil/L (150-400)
[2016-06-04] MEDS: Famotidine Inj 20 MG in IV Premix 1 EACH IV SCH ×2 (07:49→20:33)
--- NOTE | 2016-06-04 07:52 | NUR ---
Potassium/Diarrhea/BP Pt's potassium level at the beginning of the shift was 2.8 so the pt was given 80MEQ of potassium throughout the night and then the pt's lab was drawn with all other AM labs. Pt was incontinent of diarrhea x1 this AM in bed and got a full linen change and cleaned up. Pt was given metoprolol and tambacor 3 hours apart and the pt's BP and energy level tolerated this well.
[2016-06-04] MEDS: Cefepime Inj 2,000 MG in Dextrose 5% Minibag Plus 100 ML IV SCH ×2 (08:00→20:33)
[2016-06-04 08:20] LABS: BASOPHILS % (AUTO) 0 % (0-3); MONOCYTES % (AUTO) 23 % (4-12); NEUTROPHILS % (AUTO) 57 % (40-74)
[2016-06-04 10:19] LABS: Magnesium 1.7 mg/dL (1.6-2.6)
--- NOTE | 2016-06-04 12:41 | NUR ---
Social Work Note: Readiness for Discharge Data& Assessment: EMR reviewed. Per PT, pt has progressed and no longer requires SNF. Per PT, pt still will require Home Health Services at time of discharge. Referral to [facility] has already been made in the beginning of pt hospitalization. SW met with pt at bedside to confirm discharge plan and assess for any unmet needs. Pt provided with Home Health List to confirm preference. Pt prefers [facility]. SW contacted [facility] to confirm that referral was still active. Pt explained she is planning on one of her neighbors transporting her home at time of discharge, but if not, may require Taxi company information to arrange a ride home. SW agreed to meet with pt on the day of discharge to see whether or not she will require a private pay taxi ride or not. Pt denies any other needs. No other discharge needs identified. Plan: Anticipated discharge home with [facility] PT when medically ready via POV vs. private pay taxi. Pt denies any other needs. No other discharge needs identified. SW to continue to follow if any discharge needs arise. AMANDA Bush
[2016-06-04 13:06] LABS: INR 4.11 ratio
[2016-06-04] MEDS ORDERED: Furosemide 10 mg/mL 2 mL Inj IVPUSH ONE (14:15)
--- NOTE | 2016-06-04 14:17 | PCM.PNMED ---
Subjective Date of Service Jun 04, 2016 Subjective Improving; no complaints overnight as she continues to feel better. Is concerned about her increased lower extremity edema. Denies fever, cough, sputum , trouble urinating, or worsening abdominal pain. She does state that she has intermittent diarrhea still but this is also abating. Exam Vital Signs Vital Sign - Last Date Time Temp Pulse Resp B/P Pulse Ox O2 Delivery O2 Flow Rate FiO2 06/04/16 12:14 36.3 88 20 99/62 92 Room Air 06/04/16 04:17 2.00 Intake and Output 06/03/16 06/03/16 06/04/16 Cumulative From/Thru 15:00 23:00 07:00 05/30/16 10:39 - 06/04/16 04:52 Intake Total 2238 ml 200 ml 68750 ml Output Total 100 ml 0 ml 9200 ml Balance 2138 ml 200 ml 04807 ml Intake Oral 890 ml 200 ml 2510 ml IV Total 1348 ml 52290 ml Output Urine Total 0 ml 4500 ml Urine/Stool Mix 100 ml 4700 ml # Voids 2 0 4 # Bowel Movements 2 12 Exam Gen: NAD; talking well, comfortable HEENT: EOMI, no jvd Cardio: irregular with no m/r/g Resp: cta bilaterally Abd: tender on the left side, mildly distended, + bs Ext: pitting edema greatly increased from last time I saw her 3 days ago Psych: upbeat and appropriate neuro: sensation intact throughout; moving all 4 limbs, face symmetric skin: no rashes IVs and Medications Medications Reviewed: Medications were reviewed in detail Lab and Diagnostics Result Diagram: 06/04/16 0630 06/04/16 0936 X-Rays, CTs and MRIs PROCEDURE: X-RAY CHEST ONE VIEW, PORTABLE ([id number]) INDICATIONS: SHORTNESS OF BREATH TECHNIQUE: One view of the chest was acquired. COMPARISON: [facility], CR, XR CHEST 1VW (PORTABLE), 08/17/2015, 15: 41. FINDINGS: Surgical changes and devices: Dual-lead cardiac pacer is stable. Lungs and pleura: No pleural effusions or pneumothorax. Lungs are clear. Mediastinum: Mediastinal contours appear normal. Heart size is normal. Bones and chest wall: No suspicious bony lesions. Overlying soft tissues appear unremarkable. IMPRESSION: No acute cardiopulmonary disease process. Dictated by: Mikala Richey MD, PhD on 05/30/2016 at 11:27 Approved by: Mikala Richey MD, PhD on 05/30/2016 at 11:28 Assessment & Plan 76 year old female admitted for weakness, dehydration and hypotension. She had a brief stay on the ICU due to hypotension below her usual SBP 90 and signs of sepsis. She does state that she frequently has low blood pressure. Diverticulitis was diagnosed by CT on 05/31/16. She is currently undergoing treatment. 1. Diverticulitis second to infection vs chemoradiation, probably POA. ongoing - Pt improving and appetite is good - She is currently responding well to her antibiotics. - She will be continued on cefepime and metronidazol until discharge and continued on Augmentin outpatient to complete 10 day course - C. difficile toxin is negative. 2. Lower extremity edema; ongoing - Likely due to fluid overload from boluses during shock - Will start diuresis with Lasix 20mg once as patient is naive - Will consider using albumin 25mg Q8 for 1-2 days - Elevated legs at night as tolerated by patient - Consider leg wrapping - Stop for SBP <85 (as patient has chronic low BP) or symptoms - Recheck BMP in am; replace K as needed 3. Septic shock, POA. Resolved. - She is now off pressors and being maintained on a lower rate of IV fluids. - Will stop steroids that were started for refractory shock 4. Neutropenic fever, POA. Resolved. 5. Lactic acidosis . POA. Resolved 6. Hypomagnesemia, POA. Corrected. 7. Esophageal cancer, status post esophagectomy currently on chemoradiation therapy. POA. 8. Chronic diastolic heart failure, POA. Currently compensated. Follow for symptoms that she is fluid resuscitated. 9. Essential hypertension, POA. Hold meds until fluid resuscitated. 10. Patient is more atrial fibrillation. POA. The patient is doing well with resumption of flecainide and metoprolol and continue to monitor for any evidence of rapid ventricular response. This is not been a problem recently. 11. Weakness; poa; ongoing - Physical therapy is being continued 12. Mild hypokalemia, POA. Corrected. Dispo: Pt expected to be discharged in 1-2 days pending response to diuresis and abx Pain Evaluation: Adequate Pain Control VTE Prophylaxis: Sub-Q Heparin (Unfractionated) VTE Mechanical Devices: Intermittant Pneumatic CD Resuscitation Status: CPR: Attempt Resuscitation Time spent 35 minutes Attending Statement Patient was seen and examined with house staff. Agree with all attached documentation. He Faith DO Jun 04, 2016 14:17 Nikita Garber MD Jun 05, 2016 07:11
--- NOTE | 2016-06-04 19:21 | NUR ---
Activity Pt. up to bathroom with standby assist and /fww today. Also ambulated in [place] with PT. Had one episode of diarrhea this afternoon. AOX3, mildly forgetful, uses call light appropriately. No questions or concerns at this time.
[2016-06-05 00:30] VITALS: BP 110/59; PULSE 70; RESP 16; O2SAT 97
[2016-06-05] MEDS: Heparin 5,000 Unit/mL Inj SUBQ SCH ×2 (00:30→08:30)
[2016-06-05] MEDS: metroNIDAZOLE Inj 500 MG in IV Premix 1 EACH IV SCH ×2 (00:48→08:57)
[2016-06-05] MEDS: Lactated Ringer's 1,000 ML IV SCH ×2 (00:50→05:48)
[2016-06-05 02:51] VITALS: BP 88/50; PULSE 73; O2SAT 95
--- NOTE | 2016-06-05 04:58 | NUR ---
Activity/GI/Ride for Discharge Pt continues to be weak and unsteady on feet requiring 1 person to assist the pt while using a FWW. Pt tries to use the walker and walk the polanco and furniture at the same time when walking to the bathroom and has to be redirected to use the FWW using both hands on the FWW. Pt has been up to the bathroom twice thus far this shift for bowel movements that continue to be large amounts of green diarrhea. Pt is barely able to hold their bowel movements and has been incontinent of diarrhea in the bed. Pt said that she called the [facility] and scheduled a ride for discharge. Pt's daughter also called someone to be the pt's ride home upon discharge. The name of the person that the pt's daughter had called is Roseann and he can be reached at [phone]. Roseann's had requested that discharge be after 1130 if possible and that someone please call Roseann and notify him of when the pt will discharge so that the transition is as smooth as possible. Day shift may want to call and confirm that the [facility] ride that the pt scheduled will actually be picking the pt up and if so then Roseann needs to be notified as early as possible that there is no need for him to pick the pt up.
[2016-06-05 07:40] VITALS: BP 102/69; PULSE 79; RESP 16; O2SAT 99
[2016-06-05 07:45] VITALS: PULSE 79
[2016-06-05] MEDS: Famotidine Inj 20 MG in IV Premix 1 EACH IV SCH (08:56)
[2016-06-05] MEDS: Cefepime Inj 2,000 MG in Dextrose 5% Minibag Plus 100 ML IV SCH (08:57)
[2016-06-05] MEDS ORDERED: FURO-129 PO (10:27)
[2016-06-05] MEDS ORDERED: AMOX-366 PO (10:27)
[2016-06-05] MEDS ORDERED: FAMO20T PO (10:27)
[2016-06-05 11:13] VITALS: PULSE 80
--- NOTE | 2016-06-05 11:18 | PCM.DIMED ---
He Faith DO 06/05/16 1118: Discharge Instructions Date of Service Jun 05, 2016 Dates of Hospitalization May 30, 2016 at 15:00 Discharge Diagnosis Discharge Diagnosis Septic shock Acute diverticulitis Medication Instructions Please see new medication list and discharge instructions Diet Heart Healthy Activity No restrictions Call your provider Fever or Chills, Shortness of breath, Chest pain, Excessive diarrhea Patient Instructions You were admitted for sepsis due to diverticulitis. You have completed 6 days of antibiotics and will require at least 4 more days of Augmentin. We are sending you home with a prescription of this medication to be taken as directed. He has significant swelling in her lower legs due to fluids that were used to support your blood pressure. We began diuresing using water pills. We are sending you home with a prescription of Lasix 20 mg by mouth twice a day for 5 days. You can take this medication once or twice daily but please monitor your fluid intake to avoid dehydration. Once the swelling is decreased please stop taking the Lasix. Please only take your capecitabine by direction of your oncologist. Please follow up with your primary care within 1 week of discharge. Follow-up Provider: Rosa Devlin MD Follow-up with PCP in: 1 week Nikita Garber MD 06/05/16 1431: Discharge Instructions Patient Instructions Go to the lab for BMP and protime this Saturday, 06/08) He Faith DO Jun 05, 2016 11:18 Nikita Garber MD Jun 05, 2016 14:31
[2016-06-05] MEDS ORDERED: Phytonadione (Adult) 10 mg/1 mL Inj PO ONE (11:30)
[2016-06-05] MEDS ORDERED: KCl 40 mEq/100 mL (CENTRAL) 40 MEQ in IV Premix 1 EACH IV ONE (11:50)
[2016-06-05 13:24] LABS: INR 3.33 ratio
--- NOTE | 2016-06-05 13:33 | NUR ---
NUTRITION FOLLOW-UP: Assess: 76 YO female with esophageal cancer, status post partial esophagectomy, currently on chemoradiation, admitted with septic shock and neutropenic fever, likely due to diverticulitis. Nausea, vomiting and diarrhea continue to improve. She is on a general diet and tolerating well at 25-100%. PMHx: Esophageal cancer, tachycardia bradycardia syndrome, A fib, chronic diastolic HF, GERD, essential HTN, hypothyroidism, esophagectomy, colectomy. LABS: Reviewed. K 2.5, Glu 103, Ca 7.0, Alb 2.3 MEDICATIONS: Zofran DIET: General. PO 25-100% GI symptoms/stool: BM x 2 06/04. Skin integrity: Vito 20 ANTHROPOMETRICS: Current Wt: 90.2 kg BMI: 38.2 kg/m2 Admit Wt: 74.6 kg IBW: 46.6 kg Previous Admit Wt (03/08/16): 84.9 kg - 6.1% wt loss in 3 months ESTIMATED NEEDS: Cancer, BMI Calories: 9790-3468 kcal/day (22-25 kcal/kg BW) Protein: 70-85 g/day (1.5-1.8 g/day IBW) NUTRITION DIAGNOSIS: 1) Inadequate oral intake related to GI symptoms of nausea, vomiting and diarrhea as evidenced by self-report of not eating for several days - IMPROVING 2) Increased nutrient needs related to demand for increased nutrients related to cancer diagnosis - IMPROVING INTERVENTION: 1) Continue Ensure and Magic Cups all trays MONITOR/EVALUATE: PO intake, GI symptoms, wt, labs, nutrition status, POC. Will continue to monitor per moderate nutrition risk guidelines.
--- NOTE | 2016-06-05 14:04 | NUR ---
Discharge from PT; Ambulate w/Nsg Pt has met all PT goals and is discharged from further PT at this time; released to ambulate w/nsg w/4WW 2-3x/day as pt tolerates.
[2016-06-05 16:14] VITALS: BP 150/84; PULSE 87; RESP 18; O2SAT 97
--- NOTE | 2016-06-05 16:19 | NUR ---
Social Work Note: Discharge Data& Assessment: Per pt is medically ready for discharge. Mayrlu Andres is a 76 year old female admitted on 05/30/2016 for hypotension, Per pt is medically improved and ready for discharge. SW met with pt at bedside to confirm discharge plan and assess for any unmet needs. Pt confirmed her friend will be transporting her home today and denies any other needs. Carlos A from [facility] has obtained signed F2F and notified of pt discharge. No other discharge needs identified. All updated and agreeable to plan. Plan: Per pt is medically ready to discharge home via POV with [facility] RN and PT and [employer] to follow. Pt confirmed her friend will be transporting her home today and denies any other needs. No other discharge needs identified. All updated and agreeable to plan. AMANDA Bush
[2016-06-05] MEDS ORDERED: POTA-62 PO (17:21)
--- NOTE | 2016-06-05 18:03 | NUR ---
Discharge note Patient a/o x 4, denies pain, nausea or sob. Patient oob with [facility]. PICC line, IV and tele removed intact. Patient given discharge instructions, medication reconciliation, prescriptions and info on diagnosis and new meds. All questions answered. Patient taken to the car with all belongings (cell phone, walker, clothes) [facility]
--- NOTE | 2016-06-05 19:00 | PCM.DC.MED ---
Discharge Summary Date of Service Jun 05, 2016 Dates of Hospitalization Date of Hospital Admission May 30, 2016 at 15:00 Date of Discharge: Jun 05, 2016 Providers: Admitting Physician: Nikita Castellano MD Primary Care Physician: Rosa Devlin MD Attending Physician: Nikita Castellano MD Diagnosis at Time of Discharge Diagnosis at Time of Discharge Septic shock Acute diverticulitis Procedures XRay, CTs & MRIs PROCEDURE: X-RAY CHEST ONE VIEW, PORTABLE ([id number]) INDICATIONS: SHORTNESS OF BREATH TECHNIQUE: One view of the chest was acquired. COMPARISON: [facility], CR, XR CHEST 1VW (PORTABLE), 08/17/2015, 15: 41. FINDINGS: Surgical changes and devices: Dual-lead cardiac pacer is stable. Lungs and pleura: No pleural effusions or pneumothorax. Lungs are clear. Mediastinum: Mediastinal contours appear normal. Heart size is normal. Bones and chest wall: No suspicious bony lesions. Overlying soft tissues appear unremarkable. IMPRESSION: No acute cardiopulmonary disease process. Dictated by: Mikala Richey MD, PhD on 05/30/2016 at 11:27 Approved by: Mikala Richey MD, PhD on 05/30/2016 at 11:28 Brief History This very pleasant 76-year-old female with ongoing radiation for esophageal invasive adenocarcinoma who underwent partial esophagectomy [facility] on February 01 and currently undergoing chemotherapy with capecitabine, who presents to emergency department yesterday due to ongoing general weakness, nausea, vomiting, and abdominal pain. Patient is in her third week of radiation with a total 5 weeks planned with a plan to undergo possible chemotherapy thereafter. Patient denies any hematemesis but does endorse abdominal pain that feels like cramping, and ongoing rhinorrhea. Patient denies fevers, chills, cough, sputum production, dyspnea, hemoptysis, and low exercise tolerance. Patient presented she had a low systolic blood pressure with maps around 65. X-ray and laboratory tests initially did not reveal any source of infection. Overnight the patient developed more severe hypotension refractory to 5.5 L of fluid, bottoming out at map of 47. Patient was given norepinephrine after a peripheral line 0.02-0.05. This morning she was discussed her in CCU rounds and complete workup for septic source was discussed. This morning the patient states that she does not have a fever, chills, or lightheadedness/dizziness. She continues to have emesis. Line access was achieved this morning with PICC placed by IV therapy. Chest x-ray is not that impressive with known obvious consolidation. Patient denies any history of asthma, she was a former smoker who quit in the 1970s, any recent illness, or respiratory problems. She denies contacts. Hospital Course 76 year old female admitted for weakness, dehydration and hypotension. She had a brief stay on the ICU due to hypotension below her usual SBP 90 and signs of sepsis. She does state that she frequently has low blood pressure. Diverticulitis was diagnosed by CT on 05/31/16. She is currently undergoing treatment. 1. Diverticulitis second to infection vs chemoradiation, probably POA. ongoing - Pt improving and appetite is good - She responded well to her antibiotics. - She will be continued on cefepime and metronidazol until discharge, then continued on Augmentin outpatient to complete 10 day course - C. difficile toxin was negative. 2. Lower extremity edema; ongoing - Likely due to fluid overload from boluses during shock - Will start diuresis with Lasix 20mg once as patient is naive - Albumin 25mg Q8 for 1-2 days was used - Elevate legs at night as tolerated by patient - Consider leg wrapping - Stop for SBP <85 (as patient has chronic low BP) or symptoms - Patient sent home with 20 mEq potassium chloride tablets to be taken as directed along with Lasix intravenous for no more than 5 days. Patient instructed on Lasix 3. Septic shock, POA. Resolved. - She is now off pressors and being maintained on a lower rate of IV fluids. -.Stopped steroids that were started for refractory shock 4. Neutropenic fever, POA. Resolved. 5. Lactic acidosis . POA. Resolved 6. Hypomagnesemia, POA. Corrected. 7. Esophageal cancer, status post esophagectomy currently on chemoradiation therapy. POA. 8. Chronic diastolic heart failure, POA. Currently compensated. Follow for symptoms that she is fluid resuscitated. 9. Essential hypertension, POA. Hold meds until fluid resuscitated. 10. Patient is more atrial fibrillation. POA. The patient is doing well with resumption of flecainide and metoprolol and continue to monitor for any evidence of rapid ventricular response. This is not been a problem recently. 11. Weakness; poa; ongoing - Physical therapy is being continued 12. Mild hypokalemia, POA. Corrected. Dispo: Patient discharged in stable and much improved condition with continuation of antibiotics for another 3-4 days as well as Lasix for no more than 5 days. Patient was sufficiently instructed on HANNA inhibitor antibiotics, the use and duration of Lasix as well as instructions on when to stop Lasix and when to return to the emergency room should she medically decline. Exam Vital Signs (Last) Date Time Temp Pulse Resp B/P Pulse Ox O2 Delivery O2 Flow Rate FiO2 06/05/16 16:14 37.3 87 18 150/84 97 Room Air 06/04/16 04:17 2.00 Exam Gen: NAD; talking well, comfortable HEENT: EOMI, no jvd Cardio: irregular with no m/r/g Resp: cta bilaterally Abd: tender on the left side, mildly distended, + bs Ext: pitting edema greatly increased from last time I saw her 3 days ago Psych: upbeat and appropriate neuro: sensation intact throughout; moving all 4 limbs, face symmetric skin: no rashes Test 05/30/16 11:10 05/31/16 02:26 05/31/16 12:50 05/31/16 19:00 Hold Urine Received (Received) Hemoglobin A1c 6.0% (4.8-5.6) Lipase 4U/L (13-60) Urine Color Yellow (YELLOW) Urine Appearance Clear (CLEAR,HAZY) Urine pH 5.5 (5.0-8.0) Urine Specific [place] 1.030 (1.003-1.035) Urine Protein Negativemg/dL (NEG,TRACE) Urine Glucose (UA) Negativemg/dL (NEGATIVE) Urine Ketones Negativemg/dL (NEGATIVE) Urine Occult Blood Negative (NEGATIVE) Urine Nitrite Negative (NEGATIVE) Urine Bilirubin Negative (NEGATIVE) Urine Urobilinogen Normalmg/dL (NORMAL) Urine Leukocyte Esterase Negative (NEGATIVE) Urine RBC 0-2/hpf (0-2) Urine WBC 0-5/hpf (0-5) Urine Epithelial Cells Occasional/hpf (NONE-MOD) Urine Crystals None seen (NONE SEEN) Urine Bacteria None/hpf (NONE-FEW) Urine Hyaline Casts Occasional/lpf (NONE) Urine Granular Casts Occasional (NONE SEEN) Urine Waxy Casts None seen (NONE SEEN) Urine Red Blood Cell Casts None seen (NONE SEEN) Urine White Blood Cell Casts None seen (NONE SEEN) Urine Mucus Present (None Seen) Urine Trichomonas None seen (NONE SEEN) Urine Yeast None (NONE SEEN) Urinalysis Comment None Urine Culture Reflexed Not indicated Troponin T < 0.010ug/L (0.0-0.011) Test 05/31/16 21:00 06/01/16 04:40 06/02/16 00:52 06/02/16 05:00 Lactic Acid Level 2.4mmol/L (0.4-2.0) Hematology Comments Wbc Phosphorus Level 1.3mg/dL (2.5-4.9) Procalcitonin 1.86ng/mL (0.00-0.08) Test 06/02/16 16:40 06/03/16 09:05 06/04/16 06:30 06/04/16 09:36 Hold [place] Top Tube Received (Received) Prealbumin 10mg/dL (20-40) White Blood Count 5.9th/mm3 (3.8-10.1) Red Blood Count 4.02mil/mm3 (3.90-5.20) Hemoglobin 11.8g/dL (12.0-15.6) Hematocrit 34.5% (35.0-46.0) Mean Corpuscular Volume 85.8fL (81-100) Mean Corpuscular Hemoglobin 29.4pg (27.0-35.0) Mean Corpuscular Hemoglobin Concent 34.2% (32.0-37.0) Red Cell Distribution Width 18.7% (12.3-15.4) Platelet Count 176bil/L (150-400) Neutrophils (%) (Auto) 57% (40-74) Lymphocytes (%) (Auto) 12% (14-46) Monocytes (%) (Auto) 23% (4-12) Eosinophils (%) (Auto) 0% (0-5) Basophils (%) (Auto) 0% (0-3) Band Neutrophils % 3% (1-5) Metamyelocytes % 2% (0-0) Myelocytes % 3% (0-0) Magnesium Level 1.7mg/dL (1.6-2.6) Total Bilirubin 0.6mg/dL (0.0-1.2) Aspartate Amino Transf (AST/SGOT) 22U/L (0-50) Alanine Aminotransferase (ALT/SGPT) 14U/L (0-32) Alkaline Phosphatase 41U/L (25-165) Total Protein 4.1g/dL (6.4-8.4) Albumin 2.3g/dL (3.4-5.0) Test 06/05/16 10:35 06/05/16 12:40 Sodium Level 140mEq/L (134-144) Potassium Level 2.5mEq/L (3.5-5.2) Chloride Level 106mEq/L (97-108) Carbon Dioxide Level 24mmol/L (18-29) Blood Urea Nitrogen 8mg/dL (8-27) Creatinine 0.86mg/dL (0.57-1.00) Estimat Glomerular Filtration Rate 92mL/min (>59) Glucose Level 103mg/dL (60-99) Calcium Level 7.0mg/dL (8.5-10.1) Prothrombin Time 36.5sec (8.1-12.5) Prothromb Time International Ratio 3.33ratio Discharge Medications Discharge Medications Amoxicillin/Clav K 875-125 mg (Augmentin 875-125 mg) 1 Each Tablet 1 TABLET PO BID Prescribed by: HE SANCHEZ DO Aspirin (Aspirin) 325 Mg Tablet 325 MG PO DAILY (Reported) Capecitabine (Xeloda) 500 Mg Tablet 1,650 MG PO BID (Reported) takes 1650mg BID x5 weeks during RAD ONC Escitalopram Oxalate (Lexapro) 20 Mg Tablet 20 MG PO BID (Reported) Famotidine (Pepcid) 20 Mg Tablet 20 MG PO BID Prescribed by: HE SANCHEZ DO Flecainide Acetate (Flecainide Acetate) 150 Mg Tablet 150 MG PO BID (Reported) Furosemide (Lasix) 20 Mg Tablet 20 MG PO BID Prescribed by: HE SANCHEZ DO Levothyroxine (Synthroid) 100 Mcg Tablet 100 MCG PO DAILY (Reported) Lovastatin (Lovastatin) 20 Mg Tablet 40 MG PO HS (Reported) Metoprolol Tartrate (Metoprolol Tartrate) 25 Mg Tablet 25 MG PO BID (Reported) Metronidazole (Metronidazole Cream) 45 Gm Cream..g. 1 APPLIC TOP BID (Reported) Oxybutynin Chloride (Oxybutynin Chloride) 5 Mg Tablet 5 MG PO BID (Reported) Potassium Chloride ER (Potassium Chloride ER) 20 Meq Tablet.er 20 MEQ PO BID TAKE WITH FOOD Prescribed by: NIKITA CASTELLANO MD As needed Ondansetron ODT (Ondansetron ODT) 4 Mg Tab.rapdis 4 MG PO BID PRN PRN For Nausea (Reported) Additional med instructions Please see new medication list and discharge instructions Followup Plan Disposition: Patient is energetic and ready to the hospital. She did have hypokalemia prior to discharge but was supplemented with 40 mEq of potassium chloride. Strict instructions were given to follow-up care as well as how and when to take her Lasix. Follow-up plan Patient is to follow-up with her primary care physician within a week and her oncologist at the next available appointment. Discharge Diet: Heart Healthy Discharge Activity: No restrictions Patient Instructions Go to the lab for BMP and protime this Saturday, 06/08) Follow-up Provider: Rosa Devlin MD Follow-up with PCP in: 1 week Time spent 60 minutes Attending Statement Patient seen and examined with housestaff. Agree with all attached documentation. He Sanchez DO Jun 05, 2016 19:00 Nikita Castellano MD Jun 08, 2016 09:59
[2016-06-14] MEDS ORDERED: METO25TA6 PO (09:11)
[2016-06-14] MEDS ORDERED: FLEC100T2 PO (09:11)
[2016-06-28] MEDS ORDERED: PANT20TA2 PO (09:18)
--- NOTE | 2016-07-28 07:49 | PROG NOTE ---
[address] [address] PROGRESS NOTE PATIENT: BEBA HALL : 1940 MR#: [id number] ADMIT: 05/30/2016 JOB ID: [id number] DATE: 06/05/2016 HISTORY OF PRESENT ILLNESS: This is a 76-year-old woman who was hospitalized on May 30, 2016, with severe weakness, diarrhea, nausea and hypotension. She had been treated with a combination of radiation and capecitabine chemotherapy for postoperative treatment for esophageal cancer. 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 Rendon at the [facility] on February 02, 2016. By May 31, she was developing severe hypotension requiring pressors and fluid resuscitation but by June 03, 2016, her blood pressure stabilized, she was eating and having minimal loose stools. It became evident, as per my note of June 01, 2016, that she had not stopped her capecitabine when she developed diarrhea and so, this added insult injury from an undoubtedly toxic colitis. Now, that she is off capecitabine, she is recovering nicely. Subjectively, she is in reasonably good spirits. She is always very upbeat. She has had no fevers or pain. Head and neck: No headaches, visual changes, or stomatitis. Respiratory: No cough or dyspnea. Cardiac: No chest pain or palpitations. GI: One to two loose stools a day. No pain. No hematochezia. Appetite is fair. Musculoskeletal: Some peripheral edema. : No dysuria. PHYSICAL EXAMINATION: Her vital signs show a temperature of 37.3, pulse 87, respiratory rate 18, blood pressure 150/84, pulse ox 97% on room air. Head and neck: Pupils equal, round, reactive. No icterus or conjunctivitis. Oral and oropharyngeal mucosa without thrush or lesions. Respiratory: Clear to auscultation anteriorly and laterally and posteriorly. Cardiac rhythm is regular, without murmur. There is 1+ peripheral edema. Abdomen is soft and nontender. No masses or organomegaly. Active bowel sounds. LABORATORY VALUES: The white count is 5.9, hemoglobin 11.8, hematocrit 34.5, platelets 176 on June 04, 2016, with electrolytes normal, BUN 7, creatinine 0.83. Glucose 102. Albumin 3.1. AST, ALT, alkaline phosphatase and bilirubin normal. IMAGING: The abdomen CT on May 31, 2016, showed diverticulitis, small amount of ascites, hiatal hernia and bilateral pleural effusions, small. ASSESSMENT AND RECOMMENDATIONS: 1. Diarrheal illness. This is clearly directly related to capecitabine and continued administration after development of diarrhea. The patient has been advised that in the future if she were ever to take capecitabine and once diarrhea developed, she should stop it immediately. Whether or not she can resume radiation with chemotherapy is the question and will depend entirely on her recovery, and she would have to be treated with a much lower dose of capecitabine, initially 50%, with a goal of curing her stage III esophageal cancer. 2. Esophageal cancer. Generally, patients receive preoperative chemoradiation therapy. She was sent to the [facility], where the decision was made to do surgery first and to be followed by radiation and chemotherapy. This can generally be more difficult to tolerate in the postoperative setting.
== END 2016-06-05 18:24 | disposition home health service (06) | DRG 871 ==
LOC: EDBD 10:39 → EDUNIT# 10:39 → SED 10:39 → OBSVTOIN 15:00 → INTOOBSV 15:00 → PCC 15:00 → CCU 05-31 07:44 → PCC 06-02 15:02
PROVIDERS: ADMIT Hospitalist; ATTEND Hospitalist
PROC: 03HY32Z Insertion of Monitoring Device into Upper Artery, Percutaneous Approach (ICD-10-PCS; principal; 2016-05-31)
PROC: 4A033R1 Measurement of Arterial Saturation, Peripheral, Percutaneous Approach (ICD-10-PCS; 2016-05-31)
DX: A41.9 Sepsis, unspecified organism (principal); R65.21 Severe sepsis with septic shock; I50.32 Chronic diastolic (congestive) heart failure; C15.5 Malignant neoplasm of lower third of esophagus; E87.2 Acidosis; K57.32 Diverticulitis of large intestine without perforation or abscess without bleeding; E86.9 Volume depletion, unspecified; I95.9 Hypotension, unspecified; D70.1 Agranulocytosis secondary to cancer chemotherapy; I48.2 Chronic atrial fibrillation; Z79.82 Long term (current) use of aspirin; I10 Essential (primary) hypertension; Z87.891 Personal history of nicotine dependence; E83.42 Hypomagnesemia; E87.6 Hypokalemia

== ENCOUNTER 2016-10-01 12:24 | Day surgery (SDC) | payer MEDICARE, OTHER ==
[~2016-10-01] VITALS: Ht 165.1 cm; Wt 59.9 kg
[~2016-10-01 12:24] MED LIST changes: +ASPI325T32 PO; -B-CA1TAB PO; -BIOT10004 PO; -CAPE500T PO; -CHOL200025 PO; +DOXY40CP PO; -DOXY40CP4 PO; +FLEC100T2 PO; -FLEC150T PO; +Lactated Ringer's 1,000 ML IV ONE; -MELO15TA14 PO; -OMEG300C3 PO; -POT25TAB5 PO; +POTA10CA42 PO; -SPRN50T PO; -VIT1TABL83 PO; -WARF2TAB7 PO; -WARF6TAB6 PO
[2016-10-01] MEDS ORDERED: Propofol 10,000 mCg/mL 20 mL Inj ONE (12:25)
[2016-10-01 13:10] VITALS: BP 115/64; PULSE 74; RESP 16; O2SAT 100
[2016-10-01] MEDS ORDERED: WARF2TAB7 PO (13:13)
[2016-10-01] MEDS ORDERED: Lactated Ringer's 1,000 ML IV SCH (13:42)
[2016-10-01] MEDS ORDERED: MetoCLOpramide 5 mg/mL 2 mL Inj IVPUSH PRN (13:45)
[2016-10-01] MEDS ORDERED: Ondansetron 2 mg/mL 2 mL Inj IVPUSH PRN (13:45)
[2016-10-01 14:37] VITALS: BP 94/45; PULSE 80; RESP 16; O2SAT 95
--- NOTE | 2016-10-01 16:38 | PCM.HPANE ---
Patient Data Surgeon Admitting Provider: Attending Provider:Reagan Garcia MD Primary Care Physician:Kimi Tadeo MD Other Provider:[facility] Anesthesia Reason for Visit Polyp Of Colon/Dyspahgia Ht/WT & BMI Height (Feet): 5 Height (Inches): 5 Weight (Kilograms): 59.87 Body Mass Index 21.00 Allergies Coded Allergies: hydrocodone bitartrate (Verified Allergy, Mild, diarrhea, 09/28/16) Past Anesthesia History Anesthesia History: Positive for:: Fam Anesthesia Reaction (BROTHER DESATURATED POST OPERATIVE AND BRAIN RESULT), Denies:: Abnormal Airway, Anesthesia Reactions, Difficult Intubation, Fam Malignant Hypertherm, Malignant Hyperthermia Diabetes History Hx Diabetes?: No MRSA MRSA: No Medications Blood Thinner: Coumadin Last Dose Blood Thinner: Sep 25, 2016 Reported Medications Warfarin Sodium 2 Mg Tablet2 Mg PO DAILY 30 Days Ref 0 10/01/16 Potassium Chloride 10 Meq Capsule.er10 Meq PO BID 30 Days Ref 0 TAKE WITH FOOD 09/28/16 Doxycycline Monohydrate (Oracea)40 Mg Cpmp.24hr40 Mg PO DAILY 09/28/16 Flecainide Acetate 100 Mg Rjgykx326 Mg PO BID 06/14/16 Metoprolol Tartrate 25 Mg Pnrgew68.5 Mg PO BID Ref 0 06/14/16 Metronidazole (Metronidazole Cream)45 Gm Cream..g.1 Applic TOP BID #45 GM Ref 0 12/28/15 Lovastatin 20 Mg Ttqvch59 Mg PO HS #30 TABLET Ref 0 05/30/15 Oxybutynin Chloride 5 Mg Tablet5 Mg PO BID Ref 0 05/27/15 Levothyroxine (Synthroid)100 Mcg Qwtfqv260 Mcg PO DAILY Ref 0 05/27/15 Escitalopram Oxalate (Lexapro)20 Mg Rbmznn31 Mg PO BID 30 Days Ref 0 05/27/15 Discontinued Reported Medications Aspirin 325 Mg Acluwv539 Mg PO DAILY 05/30/16 Ondansetron ODT 4 Mg Tab.rapdis4 Mg PO BID PRN For Nausea 05/30/16 History History of ENT Problems?: Yes HEENT History: Positive for:: Cataracts (cataract surgery 4-5 years ago) Dysphagia (DIAGNOSED WITH ESOPHAGEAL MASS 1 WEEK AGO.) Denies:: Abnormal Airway Difficult Intubation Hearing Problem Sinus Problem Denture Type: None Teeth Condition: Within Normal Limits Hx of Heart Problems?: Yes Cardiovascular History: Positive for:: Atrial Fibrillation Cardiac Surgery (diagnostic heart cath) Chest Pain Congestive Heart Failure Hypertension Irregular Heartbeat (tachy/luana, afib) Pacemaker Denies:: AICD Abdominal Aortic Aneurism Coronary Artery Disease Edema Heart Murmur Peripheral Vascular Rheumatic Fever Thrombophlebitis Valvular Heart Disease Hx of Respiratory Problem?: Yes Respiratory History: Positive for:: Dyspnea Pneumonia Denies:: Asthma COPD Chest Surgery Cough Emphysema Hemoptysis Oxygen Administration Pulmonary Embolism Tuberculosis Use of C-PAP Machine Use of Inhalers / NEBS Other Resp Pertinent History: SOMETIMES HAS SHORTNESS OF BREATH Hx Neurologic Problems?: Yes Neurological History: Positive for:: Headaches Denies:: Alzheimer's Disease CVA Dementia Dizziness Multiple Sclerosis Parkinson's Disease Peripheral Neuropathy Seizures TIA Hx of GI Problems?: Yes Gastrointestinal History: Denies:: Cirrhosis Diverticulitis Gall Bladder Disease Gastroesphageal Reflux Gastrointestinal Bleeding Heartburn Hepatitis Hiatal Hernia Liver Disease Rectal Bleeding Hx of Problems?: Yes Genitourinary History: Positive for:: Kidney Stones Denies:: HX of Hemodialysis Urinary Tract Infection HX of Peritoneal Dialysis: No Female Hx: Denies:: Currently (post menopause) Endometriosis Pelvic Inflammatory Problems with Breasts? Skin History: Denies:: History Skin Disorders? Pressure Ulcers Hx Musculoskeletal Problems?: Yes Musculoskeletal History: Positive for:: Back Injury (spinal stenosis) Musculoskeletal Trauma Denies:: Degenerative Joint Fibromyalgia Joint Replacement Myasthenia Gravis Osteoarthritis Rheumatoid Arthritis Systemic Lupus Hx of Psycho/Social Problems?: No Psycho Social History: Positive for:: Anxiety Denies:: Bipolar Disorder Hx Depression Suicide Attempt Hx Surgeries?: Yes (ESOPHAGEAL, COLON RESECTION, HYSTERECTOMY, HEMERRHOIDS, RIGHT ARM) Hx Any Other Health Problems?: No Other History: Positive for:: Cancer (esophageal cancer) Hospitalization Thyroid Disease Denies:: Endocrine Disease History Blood Transfusions: Denies:: Blood Transfuse Reaction Blood Transfusions Hx Diabetes: No Hx Alcohol Use: NoHx Substance Use: No Smoking Status: Former Smoker Have You Smoked inLast 12 mo: No Stop/Bang Treated for Sleep Apnea?: No Do You Have a CPAP Machine?: Yes Risk Assessment Category Category 1A: Patient has history of documented sleep apnea, and HAS NOT received any narcotic, sedative or anesthesia administration during this stay. Category 1B: Patient has history of documented sleep apnea, and HAS received any narcotic , sedative or anesthesia administration during this stay Category 2: Patient has SUSPECTED Obstructive Sleep Apnea, and HAS received any narcotic , sedative or anesthesia administration during this stay. Category 3: Patient has SUSPECTED Obstructive Sleep Apnea and HAS NOT received narcotic, sedative or anesthesia administration during this stay. Category 4: Outpatient in Procedural Areas with known sleep apnea or who screen positive for High Risk via the STOP/BANG questionnaire. Exam Exam Vital Signs Vital Signs Date Time Temp Pulse Resp B/P Pulse Ox O2 Delivery O2 Flow Rate FiO2 10/01/16 13:10 74 16 115/64 100 Room Air General Appearance: Alert, Oriented X3, Cooperative, No Acute Distress HEENT/AIRWAY: MP 2, Neck Movement (FROM), Mouth Opening (3 FBMO) Lungs: Clear to Auscultation, Normal Air Movement Heart: Other (irreg irreg) Plan Impression Patient chart reviewed, patient interviewed and anesthestic plan with risks, benefits, and alternatives discussed, and informed consent obtained. NPO per Anesth. Guidelines: Yes ASA Physical Status: ASA3 Severe Disease (A fib) Anesthetic Plan: GA Bene/Risks/Altern/Consents: Yes HP Complete Prior to Induction: Yes He Cash MD Oct 01, 2016 13:42
--- NOTE | 2016-10-01 16:39 | PCM.ANEP1 ---
Post Anesthesia PACU Phase 1 Assessment Vital Signs Vital Signs Date Time Temp Pulse Resp B/P Pulse Ox O2 Delivery O2 Flow Rate FiO2 10/01/16 14:37 80 16 94/45 95 Room Air 10/01/16 13:10 74 16 115/64 100 Room Air Anesthetic Administered: GA Level of Alertness: Awake, talking NOBLE's with Equal Strength: Yes Pain: Yes Nausea or Vomiting: No CV Function & Hydration Stable: Yes Airway Device: N/A Oxygen Delivery: Room Air Lungs: Clear to Auscultation, Normal Air Movement Dermatome Level: Full Sensation PACU Phase 2 Assessment Complications: No Follow up Care: N/A Patient Instructions Provided: N/A He Cash MD Oct 01, 2016 16:39
--- NOTE | 2016-10-01 22:03 | ENDO ---
[address] [address] ENDOSCOPY PROCEDURE PATIENT: BEBA HALL : 1940 MR#: [id number] ADMIT: 10/01/2016 JOB ID: [id number] DATE OF SERVICE: 10/01/2016 PRIMARY PROVIDER: Kimi Tadeo MD. PROCEDURE: 1. Esophagogastroduodenoscopy with biopsy. 2. Colonoscopy. INDICATIONS: A 76-year-old female with a history of esophageal cancer status post gastric polyp. She has been having some dyspepsia and even some dysphagia symptoms. She is presently off PPI. She also has a history of colon polyp and therefore both EGD and colonoscopy are pursued today. EQUIPMENT: GIF H 180 J and a PCF H 180 AL. SEDATION: Monitored anesthesia as provided by Dr. He Cash. COMPLICATIONS: None identified. BOWEL PREPARATION: Fair, adequate exam. PROCEDURE INFORMATION: After the risks and benefits were explained, written and verbal informed consent was obtained. The patient was brought into the endoscopy suite and placed into the left lateral decubitus position. Sedation was achieved using the above-stated medications with the addition of oxygen via nasal cannula. The scope was introduced into the mouth through the bite block, and advanced under direct visualization to the level of the second portion of the duodenum. The scope was slowly withdrawn to carefully examine the mucosa for any defects or lesions. Retroflexed views were avoided in the stomach. We decompressed as best as possible. The scope was then removed from the patient who tolerated the procedure well. The patient was then turned around. A digital rectal examination accomplished. Mild internal hemorrhoids were noted. The scope was introduced into the rectum and advanced under direct visualization to the level of the cecum, as identified by the appendiceal orifice and ileocecal valve. The scope was slowly withdrawn to carefully examine the mucosa for any defects or lesions. Multiple direct views were made through the dentate line for exclusion of pathology. The colon was decompressed. The scope removed from the patient who tolerated the procedure well. FINDINGS: 1. Duodenum: No pathology identified from the bulb through to the second portion. 2. Stomach: The patient had gastric pull-up anatomy. The pyloric channel was at about 48 cm from the incisors. There was some bland-based ulceration through the pyloric channel and a subtle nodule on the pre-pyloric side. This area was targeted for biopsy for exclusion of Helicobacter or any other underlying histopathology. No other specific gastric pathology appreciated throughout. 3. Esophagus: The esophageal gastric anastomosis was at approximately 20 cm from the incisors. This was widely patent, and I did not appreciate any residual neoplastic effects. No stricturing. No inflammatory features. There was a small retained suture. This was photographed. The remnant in the esophagus appeared otherwise unremarkable. 4. Colon: The patient had scattered diverticula through the left colon. Challenging navigation with abdominal looping. No significant polyps, mass lesions, or inflammatory features identified throughout. ENDOSCOPIC DIAGNOSES: 1. Patent and normal-appearing gastroesophageal anastomosis. 2. Pyloric channel ulceration-biopsied. 3. Colonic diverticulosis. 4. Hemorrhoids. RECOMMENDATIONS: 1. Await histopathology. 2. If Helicobacter is found, it will need to be eradicated with standard triple therapy. 3. The patient is encouraged to resume proton pump inhibitor therapy. 4. Repeat colonoscopy can be considered in five years' time. 5. Depending on clinical response to symptoms and histology, repeat EGD can be considered in the next four months or so to ensure ulcer healing.
--- NOTE | 2016-10-03 16:44 | PATH ---
SURGICAL PATHOLOGY Attending Physician:Brittany Eller CASE STATUS: Signed Out PATIENT NAME: BEBA HALL PID: [id number] : 1940 DATE COLLECTED:10/01/2016 00:00 SPECIMEN: Gastric, Biopsy CLINICAL HISTORY: 1). PYLORIC CHANNEL BIOPSY FINAL DIAGNOSIS: 1.PYLORIC CHANNEL BIOPSY: MILD CHRONIC GASTRITIS INVOLVING ANTRAL MUCOSA. Negative for evidence of Helicobacter on H&E stain. Negative for intestinal metaplasia. Negative for dysplasia and malignancy. ICD10 K29.70 GROSS DESCRIPTION: Received in formalin, labeled with the patient's name and "pyloric channel" is one fragment of galindo soft tissue measuring 0.8 x 0.2 x 0.1 cm. The fragment is totally submitted in one cassette. [id number] MICRO DESCRIPTION: See diagnosis. ICD-9 CODES: CPT CODES: 1: 82184 Electronically Signed Out Reagan Garcia MD [facility] [address], [place] [address] Technical component performed at [facility], [facility] [address], [place], [address]
[2016-10-04] MEDS ORDERED: LANS30TA4 PO (15:33)
[2016-10-04] MEDS ORDERED: WARF3TAB7 PO (15:33)
== END 2016-10-01 23:59 | disposition home or self-care (01) ==
LOC: END 12:24
PROVIDERS: ATTEND Internal Medicine Gastroenterology
DX: Z12.11 Encounter for screening for malignant neoplasm of colon (principal); K57.30 Diverticulosis of large intestine without perforation or abscess without bleeding; K64.8 Other hemorrhoids; Z86.010 Personal history of colon polyps; Z80.0 Family history of malignant neoplasm of digestive organs; K29.50 Unspecified chronic gastritis without bleeding; Z85.01 Personal history of malignant neoplasm of esophagus; G25.81 Restless legs syndrome; G47.00 Insomnia, unspecified; G47.33 Obstructive sleep apnea (adult) (pediatric); E03.9 Hypothyroidism, unspecified; E78.5 Hyperlipidemia, unspecified; I48.0 Paroxysmal atrial fibrillation; I48.92 Unspecified atrial flutter; Z92.3 Personal history of irradiation; Z92.21 Personal history of antineoplastic chemotherapy; Z79.82 Long term (current) use of aspirin
CPT/HCPCS: 43239; G0105; J7120